=== PATIENT | male | born 1970 | race American Indian/Alaskan Native ===

== ENCOUNTER 2018-03-11 15:33 | Inpatient (IN) | payer OTHER ==
[2018-03-11] MEDS ORDERED: NACL 0.9% 1000 ML 1,000 ML IV ONE (16:11)
[2018-03-11] MEDS ORDERED: PROTONIX IV ONE (16:11)
[2018-03-11] MEDS ORDERED: ATIVAN IV ONE (16:19)
[2018-03-11] MEDS ORDERED: SandoSTATIN 500 MCG in NACL 0.9% 100 ML IV ONE (16:25)
[2018-03-11 16:45] LABS: Hematocrit 32.7 % (35.5-45.6); Mean Corpuscular HGB Conc 34 % (32-34); Mean Corpuscular Hemoglobin 32 pg (28-32); Mean Corpuscular Volume 95 fl (84-94); Red Blood Count 3.44 M/mm3 (3.65-5.03); Red Cell Distribution Width 14.7 % (13.2-15.2)
--- NOTE | 2018-03-11 16:49 | Emergency Department Report ---
HPI - General Chief Complaint: Chest Pain Time Seen by Provider: 03/11/18 16:10 - HPI HPI: Room 26 The patient is a 47-year-old male presenting with chief complaint of chest pain and hematemesis. The patient states he usually consumes a sixpack of beer daily for 3 days ago developed substernal chest pain associated with shortness of breath and diaphoresis. The patient states this prompted him to stop consuming alcohol (3 days ago). The patient states today he noticed hematemesis and melena. The patient states today he felt lightheaded and then had a syncopal episode. Patient denies abdominal pain or fever Location: Chest Duration: [See above] Quality: Pain Severity: 8-04/08 Modifying factors: [see above] Context: [see above] Mode of transportation: [not driving] ED Past Medical Hx - Past Medical History Previous Medical History?: Yes Hx Hypertension: Yes Hx Diabetes: Yes Hx Psychiatric Treatment: Yes (ETOH abuse) Hx Asthma: Yes - Surgical History Past Surgical History?: No Additional Surgical History: Herniorrhaphy - Family History Family history: no significant - Social History Smoking Status: Never Smoker Substance Use Type: Alcohol (sixpack of beer daily) - Medications Home Medications: Home Medications Medication Instructions Recorded Confirmed Last Taken Type HYDROcodone/APAP 7.5-325 [[place] 1 each PO Q6HR PRN #14 tablet 12/28/13 Unknown Rx 7.5-325 mg TAB] Ibuprofen [Motrin] 800 mg PO Q8H PRN #20 tablet 12/28/13 Unknown Rx ED Review of Systems ROS: Stated complaint: CHEST PAIN Other details as noted in HPI Constitutional: diaphoresis Eyes: denies: eye pain ENT: denies: throat pain Respiratory: shortness of breath Cardiovascular: chest pain Endocrine: no symptoms reported Gastrointestinal: hematemesis, melena. denies: abdominal pain Genitourinary: denies: dysuria Musculoskeletal: denies: back pain Neurological: denies: headache Physical Exam - Physical Exam Vital Signs: Vital Signs 03/11/18 15:50 Temperature 97.7 F Pulse Rate 111 H Respiratory 40 H Rate Blood Pressure 120/79 O2 Sat by Pulse 88 Oximetry Physical Exam: GENERAL: The patient is well-developed well-nourished male lying on stretcher appearing to be in moderate discomfort. [] HEENT: Normocephalic. Atraumatic. Extraocular motions are intact. Patient has moist mucous membranes. NECK: Supple. Trachea midline CHEST/LUNGS: Clear to auscultation. There is no respiratory distress noted. HEART/CARDIOVASCULAR: Regular. There is tachycardia. There is no gallop rub or murmur. ABDOMEN: Abdomen is soft, nontender. Patient has normal bowel sounds. There is no abdominal distention. SKIN: There is no rash. There is no edema. There is no diaphoresis. NEURO: The patient is awake, alert, and oriented. The patient is cooperative. There is mild tremulousness. The patient has normal speech MUSCULOSKELETAL: There is no evidence of acute injury. ED Course Vital Signs 03/11/18 15:50 Temperature 97.7 F Pulse Rate 111 H Respiratory 40 H Rate Blood Pressure 120/79 O2 Sat by Pulse 88 Oximetry ED Medical Decision Making - Lab Data Result diagrams: 03/14/18 04:39 03/14/18 04:39 - EKG Data -: EKG Interpreted by Me EKG shows normal: sinus rhythm Rate: tachycardia (117 bpm) - EKG Data When compared to previous EKG there are: previous EKG unavailable Critical care attestation.: If time is entered above; I have spent that time in minutes in the direct care of this critically ill patient, excluding procedure time. ED Disposition Clinical Impression: GI bleed, Chest pain, Alcohol withdrawal, Hypoxia, Renal insufficiency Disposition: OP ADMIT IP TO THIS HOSP Is pt being admited?: Yes Does the pt Need Aspirin: No Condition: Serious Time of Disposition: 17:27 (hospitalist notified (Dr Miles))
[2018-03-11 16:56] LABS: Lymphocytes % (Auto) 18.9 % (13.4-35.0); Monocytes % (Auto) 1.8 % (0.0-7.3); Platelet Count 160 K/mm3 (140-440)
[2018-03-11 16:57] LABS: Basophils % (Auto) 1.5 % (0.0-1.8); Eosinophils % (Auto) 0.5 % (0.0-4.3); Lymphocytes # (Auto) 0.5 K/mm3 (1.2-5.4)
[2018-03-11 17:01] LABS: INR 0.99 (0.87-1.13); Partial Thromboplastin Time 29.2 Sec. (24.2-36.6)
--- NOTE | 2018-03-11 17:05 | XRay Report ---
FINAL REPORT EXAM: XR CHEST 1V AP HISTORY: chest pain/MANUEL TECHNIQUE: Single, portable chest x-ray. PRIORS: None. FINDINGS: Cardiac and mediastinal silhouette within normal limits. Lungs are normally expanded, with some increased interstitial markings and peribronchial thickening centrally and most pronounced in the lower lungs. No focal consolidation or apparent pneumothorax. Bony thorax grossly unremarkable. IMPRESSION: 1. Findings which may represent nonspecific postinflammatory or bronchitic change, age-indeterminate. 2. No acute consolidation.
[2018-03-11] MEDS ORDERED: WATER FOR IRRIG STERILE IR ONE (17:17)
[2018-03-11] MEDS ORDERED: NACL 0.9% 1000 ML 1,000 ML ONE (17:19)
[2018-03-11] MEDS ORDERED: ADRENALIN ONE (17:19)
[2018-03-11] MEDS ORDERED: VITAMIN B-1 100 MG, FOLVITE 1 MG, INFUVITE 10 ML, MAGNESIUM SULFATE 2 GM in NACL 0.9% 1... IV ONE (17:22)
[2018-03-11] MEDS: PROTONIX 80 MG in NACL 0.9% 100 ML IV SCH (17:34)
--- NOTE | 2018-03-11 17:52 | Gastroenterology Consultation ---
History of Present Illness - Reason for Consult Consult date: 03/11/18 acute GI bleeding Requesting physician: KENY LANDAVERDE - History of Present Illness The patient is a 47 year old man with long history of alcohol abuse for whom consultation is requested for acute UGI bleeding. He began vomiting BRB and passing tarry black stools earlier today. He reports having a syncopal event early today as well. The patient denies prior bleeding events, known PUD or liver disease. He admits to 6-12 beers daily for many years. He denies the use of NSAIDS. Past History Past Medical History: No medical history, other Past Surgical History: No surgical history Social history: alcohol abuse Family history: no significant family history Medications and Allergies Allergies Allergy/AdvReac Type Severity Reaction Status Date / Time No Known Allergies Allergy Verified 12/28/13 03:29 Home Medications Medication Instructions Recorded Confirmed Last Taken Type HYDROcodone/APAP 7.5-325 [[place] 1 each PO Q6HR PRN #14 tablet 12/28/13 Unknown Rx 7.5-325 mg TAB] Ibuprofen [Motrin] 800 mg PO Q8H PRN #20 tablet 12/28/13 Unknown Rx Active Meds: Active Medications Thiamine HCl 100 mg/ Folic Acid 1 mg/ Multivitamins/Minerals 10 ml/ Magnesium Sulfate 2 gm/ Sodium Chloride 1,015.2 mls @ 250 mls/hr IV ONCE ONE Stop: 03/11/18 21:25 Octreotide Acetate 500 mcg/ (Sodium Chloride) 101 mls @ 5.05 mls/hr IV TITR ONE ; Protocol Stop: 03/12/18 12:24 Last Admin: 03/11/18 17:32 Dose: 25 mcg/hr, 5.05 mls/hr Pantoprazole Sodium 80 mg/ (Sodium Chloride) 100 mls @ 10 mls/hr IV DIRECT DAWNA Last Admin: 03/11/18 17:34 Dose: 8 mg/hr, 10 mls/hr Review of Systems - Review of Systems Constitutional: no weight loss, no weight gain, no fever Eyes: no change in vision Ears, Nose, Throat: no decreased hearing, no difficulty swallowing, no epistaxis , no painful swallowing Breasts: deferred Cardiovascular: chest pain, shortness of breath, syncope Respiratory: no cough, no shortness of breath, no wheezing, no home oxygen Gastrointestinal: vomiting, hematemesis, melena, no abdominal pain, no BRBPR, no early satiety, no heartburn, no indigestion, no jaundice Rectal: no pain, no bleeding Male Genitourinary: deferred Musculoskeletal: no gait dysfunction, no joint pain, no muscle pain Integumentary: no rash, no pruritis, no jaundice Neurological: no head injury, no paralysis, no memory loss Psychiatric: anxiety Endocrine: no cold intolerance, no heat intolerance Hematologic/Lymphatic: no easy bruising, no easy bleeding Allergic/Immunologic: no wheezing, no angioedema Exam - Constitutional Vital Signs: Temp Pulse Resp BP Pulse Ox 97.7 F 111 H 40 H 96/60 84 03/11/18 15:50 03/11/18 16:45 03/11/18 16:45 03/11/18 16:45 03/11/18 16:45 General appearance: no acute distress, well-nourished - EENT Eyes: PERRL ENT: hearing intact, clear oral mucosa, dentition normal - Neck Neck: supple, normal ROM, no masses or JVD - Respiratory Respiratory effort: normal Respiratory: bilateral: CTA - Breasts Breasts: deferred - Cardiovascular Rhythm: regular Heart Sounds: Present: S1 & S2. Absent: gallop, rub Extremities: pulses intact, No edema, normal color, Full ROM - Gastrointestinal General gastrointestinal: Present: soft, non-tender, non-distended, normal bowel sounds. Absent: hepatomegaly, splenomegaly, mass Rectal Exam: deferred - Genitourinary Male Genitourinary: deferred - Integumentary Integumentary: Present: clear, warm, dry - Neurologic Neurological: alert and oriented x3, strength equal bilaterally - Psychiatric Psychiatric: agitated - Labs CBC & Chem 7: 03/11/18 16:21 03/11/18 16:21 Lab Results: Laboratory Results - last 24 hr 03/11/18 03/11/18 03/11/18 16:21 16:21 16:21 WBC 2.5 L RBC 3.44 L Hgb 11.0 L Hct 32.7 L MCV 95 H MCH 32 MCHC 34 RDW 14.7 Plt Count 160 Lymph % (Auto) 18.9 [place] % (Auto) 1.8 Eos % (Auto) 0.5 Baso % (Auto) 1.5 Lymph # 0.5 L [place] # 0.0 Eos # 0.0 Baso # 0.0 Seg Neutrophils % 77.3 H Seg Neutrophils # 1.9 PT INR APTT Sodium Potassium Chloride Carbon Dioxide Anion Gap BUN Creatinine Estimated GFR BUN/Creatinine Ratio Glucose Calcium Troponin T Triglycerides Cholesterol LDL Cholesterol Direct Salicylates < 0.3 L Acetaminophen < 5.0 L Plasma/Serum Alcohol Blood Type 03/11/18 03/11/18 03/11/18 16:21 16:21 16:21 WBC RBC Hgb Hct MCV MCH MCHC RDW Plt Count Lymph % (Auto) [place] % (Auto) Eos % (Auto) Baso % (Auto) Lymph # [place] # Eos # Baso # Seg Neutrophils % Seg Neutrophils # PT 13.6 INR 0.99 APTT 29.2 Sodium 135 L Potassium 4.1 Chloride 87.0 L Carbon Dioxide 14 L Anion Gap 38 BUN 79 H Creatinine 3.7 H Estimated GFR 21 BUN/Creatinine Ratio 21 Glucose 185 H Calcium 9.0 Troponin T 0.055 H Triglycerides 100 Cholesterol 212 H LDL Cholesterol Direct 91 Salicylates Acetaminophen Plasma/Serum Alcohol < 0.01 Blood Type 03/11/18 16:34 WBC RBC Hgb Hct MCV MCH MCHC RDW Plt Count Lymph % (Auto) [place] % (Auto) Eos % (Auto) Baso % (Auto) Lymph # [place] # Eos # Baso # Seg Neutrophils % Seg Neutrophils # PT INR APTT Sodium Potassium Chloride Carbon Dioxide Anion Gap BUN Creatinine Estimated GFR BUN/Creatinine Ratio Glucose Calcium Troponin T Triglycerides Cholesterol LDL Cholesterol Direct Salicylates Acetaminophen Plasma/Serum Alcohol Blood Type A POSITIVE Assessment and Plan - Patient Problems (1) UGIB (upper gastrointestinal bleed) Current Visit: Yes Status: Acute Plan to address problem: Acute UGI bleeding is present. Rule out varices, PUD, vascular lesions. Urgent endoscopy is planned. (2) Renal failure, acute Current Visit: Yes Status: Acute Plan to address problem: Baseline unknown. May be largely from blood loss vs a component of CKD. (3) Alcohol abuse Current Visit: Yes Status: Acute Plan to address problem: Mildly tremulous at present.
[2018-03-11 18:14] LABS: Chol/HDL Ratio 1.3 %
[2018-03-11] MEDS ORDERED: AMIDATE IV ONE (18:47)
[2018-03-11] MEDS ORDERED: XYLOCAINE MPF 2% ONE (18:48)
[2018-03-11] MEDS ORDERED: NEO SYNEPHRINE/NS Syringe(OR USE) IV ONE (19:08)
--- NOTE | 2018-03-11 19:08 | Anesthesia Consultation ---
Anesthesia Consult and Med Hx Date of service: 03/11/18 - Airway Anesthetic Teeth Evaluation: Good ROM Head & Neck: Adequate Mental/Hyoid Distance: Adequate Mallampati Class: Class II Intubation Access Assessment: Probably Good - Pulmonary Exam CTA: Yes - Cardiac Exam Cardiac Exam: RRR (tachycardic) - Pre-Operative Health Status ASA Pre-Surgery Classification: ASA3, Emergency Proposed Anesthetic Plan: MAC - Pulmonary Hx Smoking: No Hx Asthma: Yes Hx Respiratory Symptoms: Yes (hypoxia; SpO2 mid-90s on venturi mask) SOB: Yes Home Oxygen Therapy: No - Cardiovascular System Hx Hypertension: Yes (intermittently hypotensive) Hx Heart Attack/AMI: No - Central Nervous System Hx Neuromuscular Disorder: No Hx Seizures: No CVA: No - Endocrine Hx Renal Disease: Yes (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 Urgent EGD scheduled.
[2018-03-11] MEDS ORDERED: VERSED IV ONE (19:12)
--- NOTE | 2018-03-11 19:32 | Operative Report ---
Operative Report Operative Report: Date of procedure: 03/11/2018 Procedure: Esophagogastroduodenoscopy Preprocedure diagnosis: Acute upper GI bleeding Post procedure diagnosis: Severe, confluent esophagitis. No varices in the esophagus. Large amount of old blood on the greater curvature of the stomach, incompletely seen. Normal antrum and duodenum. Endoscopist: Dr. Castillo Anesthesia: Monitored anesthesia care per anesthesia department Medications: Etomidate and Versed per anesthesia Estimated blood loss: 0 After careful discussion of the nature and purpose of the procedure as well as details the technique risks benefits and alternatives consent was obtained. The patient was placed in the left lateral decubitus position and medicated per anesthesia. The tip of the ROI² EQ 570 video scope was passed per orum under direct vision into the esophagus and advanced into the stomach and descending duodenum. The descending duodenum the duodenal bulb and pylorus were symmetrical and normal. The scope was withdrawn into the stomach and the stomach then gently insufflated with air. The stomach had a large amount of old blood present. The antrum was fairly well seen and was normal. The stomach was further insufflated and the scope was then retroflexed and partially withdrawn. The cardia was seen and there appeared to be no varices. The fundus and proximal body of the stomach were not well seen due to the large amount of blood which could not be completely aspirated clear. The scope was then withdrawn in the forward position. The esophagogastric junction was at 0 cm] There was severe confluent inflammation throughout the entire length of the esophageal body although no discrete varices were evident. The procedure was was well tolerated and the patient was observed in recovery. Impressions: Severe, confluent esophagitis which is probably the source of bleeding. No varices in the cardia of the stomach or esophagus. The greater curvature and fundus of the stomach were incompletely seen due to the presence of a large amount of retained blood which could not be aspirated clear. Normal duodenum and antrum. Plan: Continue high-dose acid suppression. Consider nasogastric tube suction if the patient has any vomiting. Repeat endoscopy prior to discharge due to the presence of a large amount of blood making this study incomplete. Electronically signed: Jose Castillo MD
[2018-03-11] MEDS ORDERED: ZOFRAN IV PRN (20:34)
[2018-03-11] MEDS ORDERED: MORPHINE IV PRN (20:34)
[2018-03-11] MEDS ORDERED: SODIUM CHLORIDE FLUSH SYRINGE 10 ML IV PRN (20:34)
[2018-03-11] MEDS ORDERED: PERCOCET 5/325 PO PRN (20:34)
[2018-03-11] MEDS ORDERED: TYLENOL PO PRN (20:34)
--- NOTE | 2018-03-11 20:34 | History and Physical Report ---
History of Present Illness Date of examination: 03/11/18 Past History Past Medical History: No medical history, other Past Surgical History: No surgical history Social history: alcohol abuse Family history: no significant family history Medications and Allergies Allergies Allergy/AdvReac Type Severity Reaction Status Date / Time lisinopril Allergy Anaphylaxis Verified 03/11/18 19:30 Home Medications Medication Instructions Recorded Confirmed Last Taken Type HYDROcodone/APAP 7.5-325 [[place] 1 each PO Q6HR PRN #14 tablet 12/28/13 Unknown Rx 7.5-325 mg TAB] Ibuprofen [Motrin] 800 mg PO Q8H PRN #20 tablet 12/28/13 Unknown Rx Active Meds: Active Medications Thiamine HCl 100 mg/ Folic Acid 1 mg/ Multivitamins/Minerals 10 ml/ Magnesium Sulfate 2 gm/ Sodium Chloride 1,015.2 mls @ 250 mls/hr IV ONCE ONE Stop: 03/11/18 21:25 Last Admin: 03/11/18 18:44 Dose: 250 mls/hr Octreotide Acetate 500 mcg/ (Sodium Chloride) 101 mls @ 5.05 mls/hr IV TITR ONE ; Protocol Stop: 03/12/18 12:24 Last Admin: 03/11/18 17:32 Dose: 25 mcg/hr, 5.05 mls/hr Pantoprazole Sodium 80 mg/ (Sodium Chloride) 100 mls @ 10 mls/hr IV DIRECT DAWNA Last Admin: 03/11/18 17:34 Dose: 8 mg/hr, 10 mls/hr Exam - Constitutional Vitals: Temp Pulse Resp BP Pulse Ox 97.7 F 106 H 23 82/52 95 03/11/18 15:50 03/11/18 19:15 03/11/18 19:15 03/11/18 19:15 03/11/18 19:15 Results - Labs CBC & Chem 7: 03/11/18 16:21 03/11/18 16:21 Labs: Laboratory Last Values WBC 2.5 K/mm3 (4.5-11.0) L 03/11/18 16:21 RBC 3.44 M/mm3 (3.65-5.03) L 03/11/18 16:21 Hgb 11.0 gm/dl (11.8-15.2) L 03/11/18 16:21 Hct 32.7 % (35.5-45.6) L 03/11/18 16:21 MCV 95 fl (84-94) H 03/11/18 16:21 MCH 32 pg (28-32) 03/11/18 16:21 MCHC 34 % (32-34) 03/11/18 16:21 RDW 14.7 % (13.2-15.2) 03/11/18 16:21 Plt Count 160 K/mm3 (140-440) 03/11/18 16:21 Lymph % (Auto) 18.9 % (13.4-35.0) 03/11/18 16:21 [place] % (Auto) 1.8 % (0.0-7.3) 03/11/18 16:21 Eos % (Auto) 0.5 % (0.0-4.3) 03/11/18 16:21 Baso % (Auto) 1.5 % (0.0-1.8) 03/11/18 16:21 Lymph # 0.5 K/mm3 (1.2-5.4) L 03/11/18 16:21 [place] # 0.0 K/mm3 (0.0-0.8) 03/11/18 16:21 Eos # 0.0 K/mm3 (0.0-0.4) 03/11/18 16:21 Baso # 0.0 K/mm3 (0.0-0.1) 03/11/18 16:21 Seg Neutrophils % 77.3 % (40.0-70.0) H 03/11/18 16:21 Seg Neutrophils # 1.9 K/mm3 (1.8-7.7) 03/11/18 16:21 PT 13.6 Sec. (12.2-14.9) 03/11/18 16:21 INR 0.99 (0.87-1.13) 03/11/18 16:21 APTT 29.2 Sec. (24.2-36.6) 03/11/18 16:21 Sodium 135 mmol/L (137-145) L 03/11/18 16:21 Potassium 4.1 mmol/L (3.6-5.0) 03/11/18 16:21 Chloride 87.0 mmol/L (98-107) L 03/11/18 16:21 Carbon Dioxide 14 mmol/L (22-30) L 03/11/18 16:21 Anion Gap 38 mmol/L 03/11/18 16:21 BUN 79 mg/dL (9-20) H 03/11/18 16:21 Creatinine 3.7 mg/dL (0.8-1.5) H 03/11/18 16:21 Estimated GFR 21 ml/min 03/11/18 16:21 BUN/Creatinine Ratio 21 % 03/11/18 16:21 Glucose 185 mg/dL (75-100) H 03/11/18 16:21 Calcium 9.0 mg/dL (8.4-10.2) 03/11/18 16:21 Troponin T 0.087 ng/mL (0.00-0.029) H D 03/11/18 19:38 Triglycerides 100 mg/dL (2-149) 03/11/18 16:21 Cholesterol 212 mg/dL (50-199) H 03/11/18 16:21 LDL Cholesterol Direct 91 mg/dL (50-130) 03/11/18 16:21 HDL Cholesterol 162 mg/dL (40-59) H 03/11/18 16:21 Cholesterol/HDL Ratio 1.30 % 03/11/18 16:21 Salicylates < 0.3 mg/dL (2.8-20.0) L 03/11/18 16:21 Acetaminophen < 5.0 ug/mL (10.0-30.0) L 03/11/18 16:21 Plasma/Serum Alcohol < 0.01 % (0-0.07) 03/11/18 16:21 Blood Type A POSITIVE 03/11/18 16:34 Antibody Screen Negative 03/11/18 16:34
[2018-03-11 22:10] LABS: Bilirubin,Urine NEG (Negative); Blood,Urine LG (Negative); Color,Urine Amber (Yellow); Mucus,Urine 1+ /HPF; Urobilinogen,Urine < 2.0 mg/dL (<2.0)
--- NOTE | 2018-03-11 22:12 | Nuclear Medicine Report ---
FINAL REPORT EXAM: NM LUNG SCAN PERF/VENT HISTORY: chest pain, hypoxia TECHNIQUE: Nuclear medicine lung VQ scan performed using approximately 10.3 mCi of xenon-133 gas and 4.1 mCi of technetium 99m MAA, respectively. Planar images of lungs obtained during both phases. PRIORS: Portable chest x-ray of same date. FINDINGS: Ventilation scan shows near homogeneous radionuclide accumulation in both lungs without significantly delayed washout. Perfusion scan shows mildly heterogeneous radionuclide accumulation conforming to the outlines of both lungs. No significant, segmental or mismatched defects identified. IMPRESSION: 1. Low probability for pulmonary embolism.
[2018-03-11 22:15] LABS: Amphetamine Screen,Urine PRESUMPTIVE NEGATIVE; Cannabinoid Screen,Urine PRESUMPTIVE NEGATIVE; Cocaine Screen,Urine PRESUMPTIVE NEGATIVE; Methadone Screen,Urine PRESUMPTIVE NEGATIVE; Opiate Screen,Urine PRESUMPTIVE NEGATIVE
[2018-03-11 22:31] LABS: Benzodiazepines Screen,Urine PRESUMPTIVE POSITIVE
[2018-03-11] MEDS: NACL 0.9% 1000 ML 1,000 ML IV SCH (22:39)
[2018-03-11] MEDS: SODIUM CHLORIDE FLUSH SYRINGE 10 ML IV SCH (22:39)
[2018-03-11 22:41] LABS: Hematocrit 25.5 % (35.5-45.6); Hemoglobin 8.6 gm/dl (11.8-15.2)
[2018-03-11] MEDS ORDERED: NACL 0.9% 500 ML 500 ML ONE (22:42)
[2018-03-11] MEDS ORDERED: NACL 0.9% 500 ML 500 ML IV ONE (22:52)
[2018-03-12 05:19] LABS: Basophils % (Auto) 0.3 % (0.0-1.8); Hematocrit 21.8 % (35.5-45.6); Hemoglobin 7.6 gm/dl (11.8-15.2); Lymphocytes # (Auto) 0.5 K/mm3 (1.2-5.4); Lymphocytes % (Auto) 10.5 % (13.4-35.0); Mean Corpuscular HGB Conc 35 % (32-34); Mean Corpuscular Hemoglobin 32 pg (28-32); Mean Corpuscular Volume 93 fl (84-94); Monocytes # (Auto) 0.4 K/mm3 (0.0-0.8); Monocytes % (Auto) 7.9 % (0.0-7.3); Red Blood Count 2.35 M/mm3 (3.65-5.03); Red Cell Distribution Width 14.4 % (13.2-15.2)
[2018-03-12 05:25] LABS: Calcium 7.3 mg/dL (8.4-10.2)
[2018-03-12 06:02] LABS: Albumin 3.5 g/dL (3.9-5)
[2018-03-12 06:05] LABS: Platelet Count 94 K/mm3 (140-440)
--- NOTE | 2018-03-12 07:02 | Event Note ---
Date: 03/11/18 See dictated H/p in reports ETOH dependence-DT's Upper GI bleed Hypotension
[2018-03-12 08:21] LABS: Hematocrit 22.1 % (35.5-45.6); Hemoglobin 7.6 gm/dl (11.8-15.2)
[2018-03-12] MEDS: ROCEPHIN/NS 1 GM/50 ML 1 GM/50 ML BAG IV SCH (08:50)
[2018-03-12] MEDS: DUONEB *Not for PRN Use IH SCH ×2 (09:11→13:13)
--- NOTE | 2018-03-12 09:29 | History and Physical Report ---
CHIEF COMPLAINT: 1. Hematemesis. 2. Chest pain. 3. Withdrawal symptoms. HISTORY OF PRESENT ILLNESS: A 47-year-old male with history of ETOH dependence. Stopped alcohol for the last 3 days. The patient also has developed vomiting blood in the last 24 hours. The patient had chest pain 3 days ago, so since then he stopped alcohol. The patient today felt lightheaded and vomited bright red blood. Also no abdominal pain. Chest pain present, about 6 on a scale of 1-10, dull in character. Some shortness of breath present. Also hypoxic in the Emergency Room. PAST MEDICAL HISTORY: Significant for hypertension, diabetes, ETOH abuse, asthma. PAST SURGICAL HISTORY: Herniorrhaphy. FAMILY HISTORY: Hypertension. SOCIAL HISTORY: Does not smoke. Alcohol on a regular basis, 6-pack of beer daily. CURRENT MEDICATIONS: Ibuprofen and hydrocodone. REVIEW OF SYSTEMS: Significant for hematemesis, chest pain, shortness of breath and anxiety and nervousness. Otherwise, review of systems negative. PHYSICAL EXAMINATION: GENERAL: Middle-aged male, cooperative during examination. VITAL SIGNS: Blood pressure 120/79, temperature 97.7, pulse is 111, respirations are 40. HEENT: Unremarkable. Pupils equal and reactive. NECK: Supple, no lymphadenopathy, no thyromegaly. LUNGS: Scattered rhonchi bilaterally. CARDIOVASCULAR: S1, S2 heard. No gallop, no murmur, no rub. Apical impulse in left fifth intercostal space and midclavicular line. ABDOMEN: Slightly tender in the epigastric region. Bowel sounds are normal. RECTAL: Positive for occult blood. Tarry stools on the finger. EXTREMITIES: Good pedal pulses. No pedal edema. CENTRAL NERVOUS SYSTEM: Alert and oriented x 4, nonfocal exam. LABORATORY DATA: Significant for white count of 2500, H and H of 11.0 and 32.7, platelet count of 160,000. Sodium is 135, potassium is 4.1, chloride is 87, bicarbonate is 14, BUN and creatinine is 17 and 3.7, glucose is 185. Troponin is 0.087. Triglycerides 100, cholesterol is 212. LDL is 91, HDL is 162. Urine white cells of 25. EKG shows sinus tachycardia, heart rate of 117 per minute, no acute ST-T wave changes. Pulmonary perfusion scan was negative for embolism. Chest x-ray shows nonspecific postinflammatory bronchitis changes. No acute consolidation. ER COURSE: The patient had an upper GI by Dr. Castillo. The patient had emergent EGD in the Emergency Room by Dr. Castillo at bedside. EGD showed confluent esophagitis, old blood in the greater curvature of the stomach, normal antrum and duodenum. No peptic ulcer present. ASSESSMENT AND PLAN: 1. Upper gastrointestinal bleed. IV Protonix drip initiated. No active bleeding. Continue Protonix drip for 24-48 hours and switch to p.o. Protonix. 2. ETOH dependence. The patient initiated on CIWA protocol. 3. Delirium tremens. CIWA protocol initiated. 4. Hyponatremia. IV normal saline for the time being. 5. Acute on chronic kidney disease. IV fluids for now. Dr. Silva consulted. 6. Chest pain, elevated troponin at this point. Lexiscan in 24-48 hours 7. Urinary tract infection. IV Rocephin initiated. 8. Deep venous thrombosis prophylaxis, only sequential compression devices. No Lovenox or heparin. JOB# [id number] VSM/NTS
--- NOTE | 2018-03-12 09:47 | Gastroenterology Progress Note ---
<WOODROW SU - Last Filed: 03/12/18 09:51> Assessment and Plan 1.UGIB -HGB 7.6-trending down -continue to monitor H/H and transfuse as needed -hold blood thinning medications -BMs x 5 overnight with black stool but no further episodes of hematemesis -currently HD stable -s/p EGD yesterday that revealed severe, confluent esophagitis (no varices), large amount of old blood on the greater curvature of the stomach (incompletely seen), and normal antrum/duodenum -recommend repeat endoscopy prior to discharge -okay to d/c octreotide drip -continue PPI drip -okay to start on clear liquids -continue supportive care -will follow 2.ETOH abuse -alcohol cessation discussed and encouraged with patient -monitor for s/s of withdrawal Subjective Date of service: 03/12/18 Principal diagnosis: GI bleed Interval history: Patient w/o acute distress. Reports BMs x 5 overnight with black tarry stool but no hematemesis. Has some mild continued CP this am (stress test tomorrow). Denies Abd pain or N/V. Objective - Constitutional Vitals: Temp Pulse Resp BP Pulse Ox 98.5 F 83 30 H 106/67 100 03/11/18 22:29 03/12/18 05:30 03/12/18 06:33 03/12/18 05:30 03/12/18 06:33 General appearance: no acute distress - EENT Eyes: PERRL, EOM intact ENT: hearing intact - Respiratory Respiratory: bilateral: CTA - Cardiovascular Rhythm: regular Heart Sounds: Present: S1 & S2 - Gastrointestinal General gastrointestinal: Present: soft, non-tender, non-distended - Neurologic Neurological: alert and oriented x3 - Labs CBC & Chem 7: 03/12/18 07:52 03/12/18 04:38 Labs: Laboratory Results - last 24 hr 03/11/18 03/11/18 03/11/18 16:21 16:21 16:21 WBC 2.5 L RBC 3.44 L Hgb 11.0 L Hct 32.7 L MCV 95 H MCH 32 MCHC 34 RDW 14.7 Plt Count 160 Lymph % (Auto) 18.9 [place] % (Auto) 1.8 Eos % (Auto) 0.5 Baso % (Auto) 1.5 Lymph # 0.5 L [place] # 0.0 Eos # 0.0 Baso # 0.0 Seg Neutrophils % 77.3 H Seg Neutrophils # 1.9 PT INR APTT Sodium Potassium Chloride Carbon Dioxide Anion Gap BUN Creatinine Estimated GFR BUN/Creatinine Ratio Glucose Calcium Total Bilirubin AST ALT Alkaline Phosphatase Troponin T Total Protein Albumin Albumin/Globulin Ratio Triglycerides Cholesterol LDL Cholesterol Direct HDL Cholesterol Cholesterol/HDL Ratio Urine Color Urine Turbidity Urine pH Ur Specific Enterprise Urine Protein Urine Glucose (UA) Urine Ketones Urine Blood Urine Nitrite Urine Bilirubin Urine Urobilinogen Ur Leukocyte Esterase Urine WBC (Auto) Urine RBC (Auto) U Epithel Cells (Auto) Urine Mucus Salicylates < 0.3 L Urine Opiates Screen Urine Methadone Screen Acetaminophen < 5.0 L Ur Barbiturates Screen Ur Phencyclidine Scrn Ur Amphetamines Screen U Benzodiazepines Scrn Urine Cocaine Screen U Marijuana (THC) Screen Drugs of Abuse Note Plasma/Serum Alcohol Blood Type Antibody Screen 03/11/18 03/11/18 03/11/18 16:21 16:21 16:21 WBC RBC Hgb Hct MCV MCH MCHC RDW Plt Count Lymph % (Auto) [place] % (Auto) Eos % (Auto) Baso % (Auto) Lymph # [place] # Eos # Baso # Seg Neutrophils % Seg Neutrophils # PT 13.6 INR 0.99 APTT 29.2 Sodium 135 L Potassium 4.1 Chloride 87.0 L Carbon Dioxide 14 L Anion Gap 38 BUN 79 H Creatinine 3.7 H Estimated GFR 21 BUN/Creatinine Ratio 21 Glucose 185 H Calcium 9.0 Total Bilirubin AST ALT Alkaline Phosphatase Troponin T 0.055 H Total Protein Albumin Albumin/Globulin Ratio Triglycerides 100 Cholesterol 212 H LDL Cholesterol Direct 91 HDL Cholesterol 162 H Cholesterol/HDL Ratio 1.30 Urine Color Urine Turbidity Urine pH Ur Specific [place] Urine Protein Urine Glucose (UA) Urine Ketones Urine Blood Urine Nitrite Urine Bilirubin Urine Urobilinogen Ur Leukocyte Esterase Urine WBC (Auto) Urine RBC (Auto) U Epithel Cells (Auto) Urine Mucus Salicylates Urine Opiates Screen Urine Methadone Screen Acetaminophen Ur Barbiturates Screen Ur Phencyclidine Scrn Ur Amphetamines Screen U Benzodiazepines Scrn Urine Cocaine Screen U Marijuana (THC) Screen Drugs of Abuse Note Plasma/Serum Alcohol < 0.01 Blood Type Antibody Screen 03/11/18 03/11/18 03/11/18 16:34 19:38 21:35 WBC RBC Hgb Hct MCV MCH MCHC RDW Plt Count Lymph % (Auto) [place] % (Auto) Eos % (Auto) Baso % (Auto) Lymph # [place] # Eos # Baso # Seg Neutrophils % Seg Neutrophils # PT INR APTT Sodium Potassium Chloride Carbon Dioxide Anion Gap BUN Creatinine Estimated GFR BUN/Creatinine Ratio Glucose Calcium Total Bilirubin AST ALT Alkaline Phosphatase Troponin T 0.087 H D Total Protein Albumin Albumin/Globulin Ratio Triglycerides Cholesterol LDL Cholesterol Direct HDL Cholesterol Cholesterol/HDL Ratio Urine Color Luci Urine Turbidity Clear Urine pH 5.0 Ur Specific [place] 1.016 Urine Protein 100 mg/dl Urine Glucose (UA) 50 Urine Ketones Neg Urine Blood Lg Urine Nitrite Neg Urine Bilirubin Neg Urine Urobilinogen < 2.0 Ur Leukocyte Esterase Tr Urine WBC (Auto) 25.0 H Urine RBC (Auto) 5.0 U Epithel Cells (Auto) 3.0 Urine Mucus 1+ Salicylates Urine Opiates Screen Urine Methadone Screen Acetaminophen Ur Barbiturates Screen Ur Phencyclidine Scrn Ur Amphetamines Screen U Benzodiazepines Scrn Urine Cocaine Screen U Marijuana (THC) Screen Drugs of Abuse Note Plasma/Serum Alcohol Blood Type A POSITIVE Antibody Screen Negative 03/11/18 03/11/18 03/11/18 21:35 22:16 22:16 WBC RBC Hgb 8.6 L Hct 25.5 L D MCV MCH MCHC RDW Plt Count Lymph % (Auto) [place] % (Auto) Eos % (Auto) Baso % (Auto) Lymph # [place] # Eos # Baso # Seg Neutrophils % Seg Neutrophils # PT INR APTT Sodium Potassium Chloride Carbon Dioxide Anion Gap BUN Creatinine Estimated GFR BUN/Creatinine Ratio Glucose Calcium Total Bilirubin AST ALT Alkaline Phosphatase Troponin T 0.117 H* D Total Protein Albumin Albumin/Globulin Ratio Triglycerides Cholesterol LDL Cholesterol Direct HDL Cholesterol Cholesterol/HDL Ratio Urine Color Urine Turbidity Urine pH Ur Specific Enterprise Urine Protein Urine Glucose (UA) Urine Ketones Urine Blood Urine Nitrite Urine Bilirubin Urine Urobilinogen Ur Leukocyte Esterase Urine WBC (Auto) Urine RBC (Auto) U Epithel Cells (Auto) Urine Mucus Salicylates Urine Opiates Screen Presumptive negative Urine Methadone Screen Presumptive negative Acetaminophen Ur Barbiturates Screen Presumptive negative Ur Phencyclidine Scrn Presumptive negative Ur Amphetamines Screen Presumptive negative U Benzodiazepines Scrn Presumptive positive Urine Cocaine Screen Presumptive negative U Marijuana (THC) Screen Presumptive negative Drugs of Abuse Note Disclamer Plasma/Serum Alcohol Blood Type Antibody Screen 0803/12/18 03/12/18 04:38 04:38 07:52 WBC 5.1 RBC 2.35 L Hgb 7.6 L 7.6 L Hct 21.8 L 22.1 L MCV 93 MCH 32 MCHC 35 H RDW 14.4 Plt Count 94 L Lymph % (Auto) 10.5 L [place] % (Auto) 7.9 H Eos % (Auto) 0.0 Baso % (Auto) 0.3 Lymph # 0.5 L [place] # 0.4 Eos # 0.0 Baso # 0.0 Seg Neutrophils % 81.3 H Seg Neutrophils # 4.1 PT INR APTT Sodium 134 L Potassium 4.5 Chloride 98.7 Carbon Dioxide 18 L Anion Gap 22 BUN 93 H Creatinine 3.5 H Estimated GFR 23 BUN/Creatinine Ratio 27 Glucose 110 H Calcium 7.3 L D Total Bilirubin 2.10 H AST 582 H ALT 177 H Alkaline Phosphatase 39 Troponin T Total Protein 5.7 L Albumin 3.5 L Albumin/Globulin Ratio 1.6 Triglycerides Cholesterol LDL Cholesterol Direct HDL Cholesterol Cholesterol/HDL Ratio Urine Color Urine Turbidity Urine pH Ur Specific Enterprise Urine Protein Urine Glucose (UA) Urine Ketones Urine Blood Urine Nitrite Urine Bilirubin Urine Urobilinogen Ur Leukocyte Esterase Urine WBC (Auto) Urine RBC (Auto) U Epithel Cells (Auto) Urine Mucus Salicylates Urine Opiates Screen Urine Methadone Screen Acetaminophen Ur Barbiturates Screen Ur Phencyclidine Scrn Ur Amphetamines Screen U Benzodiazepines Scrn Urine Cocaine Screen U Marijuana (THC) Screen Drugs of Abuse Note Plasma/Serum Alcohol Blood Type Antibody Screen <LUX MARTELL - Last Filed: 03/12/18 10:49> Assessment and Plan - Patient Problems (1) UGIB (upper gastrointestinal bleed) Current Visit: Yes Status: Acute Plan to address problem: The patient was personally seen and examined. Bleeding may be slowing, but he will need transfusion and repeat endoscopy in a few days due to an incomplete study due to a large amount of blood present. No varices and will stop octreotide and continue PPI infusion. (2) Renal failure, acute Current Visit: Yes Status: Acute (3) Alcohol abuse Current Visit: Yes Status: Acute Objective - Constitutional Vitals: Temp Pulse Resp BP Pulse Ox 98.5 F 82 26 H 105/72 98 03/11/18 22:29 03/12/18 10:00 03/12/18 10:00 03/12/18 10:00 03/12/18 09:30 - Labs CBC & Chem 7: 03/12/18 07:52 03/12/18 04:38 Labs: Laboratory Results - last 24 hr 03/11/18 03/11/18 03/11/18 16:21 16:21 16:21 WBC 2.5 L RBC 3.44 L Hgb 11.0 L Hct 32.7 L MCV 95 H MCH 32 MCHC 34 RDW 14.7 Plt Count 160 Lymph % (Auto) 18.9 [place] % (Auto) 1.8 Eos % (Auto) 0.5 Baso % (Auto) 1.5 Lymph # 0.5 L [place] # 0.0 Eos # 0.0 Baso # 0.0 Seg Neutrophils % 77.3 H Seg Neutrophils # 1.9 PT INR APTT Sodium Potassium Chloride Carbon Dioxide Anion Gap BUN Creatinine Estimated GFR BUN/Creatinine Ratio Glucose Calcium Total Bilirubin AST ALT Alkaline Phosphatase Troponin T Total Protein Albumin Albumin/Globulin Ratio Triglycerides Cholesterol LDL Cholesterol Direct HDL Cholesterol Cholesterol/HDL Ratio Urine Color Urine Turbidity Urine pH Ur Specific Enterprise Urine Protein Urine Glucose (UA) Urine Ketones Urine Blood Urine Nitrite Urine Bilirubin Urine Urobilinogen Ur Leukocyte Esterase Urine WBC (Auto) Urine RBC (Auto) U Epithel Cells (Auto) Urine Mucus Salicylates < 0.3 L Urine Opiates Screen Urine Methadone Screen Acetaminophen < 5.0 L Ur Barbiturates Screen Ur Phencyclidine Scrn Ur Amphetamines Screen U Benzodiazepines Scrn Urine Cocaine Screen U Marijuana (THC) Screen Drugs of Abuse Note Plasma/Serum Alcohol Blood Type Antibody Screen 03/11/18 03/11/18 03/11/18 16:21 16:21 16:21 WBC RBC Hgb Hct MCV MCH MCHC RDW Plt Count Lymph % (Auto) [place] % (Auto) Eos % (Auto) Baso % (Auto) Lymph # [place] # Eos # Baso # Seg Neutrophils % Seg Neutrophils # PT 13.6 INR 0.99 APTT 29.2 Sodium 135 L Potassium 4.1 Chloride 87.0 L Carbon Dioxide 14 L Anion Gap 38 BUN 79 H Creatinine 3.7 H Estimated GFR 21 BUN/Creatinine Ratio 21 Glucose 185 H Calcium 9.0 Total Bilirubin AST ALT Alkaline Phosphatase Troponin T 0.055 H Total Protein Albumin Albumin/Globulin Ratio Triglycerides 100 Cholesterol 212 H LDL Cholesterol Direct 91 HDL Cholesterol 162 H Cholesterol/HDL Ratio 1.30 Urine Color Urine Turbidity Urine pH Ur Specific [place] Urine Protein Urine Glucose (UA) Urine Ketones Urine Blood Urine Nitrite Urine Bilirubin Urine Urobilinogen Ur Leukocyte Esterase Urine WBC (Auto) Urine RBC (Auto) U Epithel Cells (Auto) Urine Mucus Salicylates Urine Opiates Screen Urine Methadone Screen Acetaminophen Ur Barbiturates Screen Ur Phencyclidine Scrn Ur Amphetamines Screen U Benzodiazepines Scrn Urine Cocaine Screen U Marijuana (THC) Screen Drugs of Abuse Note Plasma/Serum Alcohol < 0.01 Blood Type Antibody Screen 03/11/18 03/11/18 03/11/18 16:34 19:38 21:35 WBC RBC Hgb Hct MCV MCH MCHC RDW Plt Count Lymph % (Auto) [place] % (Auto) Eos % (Auto) Baso % (Auto) Lymph # [place] # Eos # Baso # Seg Neutrophils % Seg Neutrophils # PT INR APTT Sodium Potassium Chloride Carbon Dioxide Anion Gap BUN Creatinine Estimated GFR BUN/Creatinine Ratio Glucose Calcium Total Bilirubin AST ALT Alkaline Phosphatase Troponin T 0.087 H D Total Protein Albumin Albumin/Globulin Ratio Triglycerides Cholesterol LDL Cholesterol Direct HDL Cholesterol Cholesterol/HDL Ratio Urine Color Luci Urine Turbidity Clear Urine pH 5.0 Ur Specific [place] 1.016 Urine Protein 100 mg/dl Urine Glucose (UA) 50 Urine Ketones Neg Urine Blood Lg Urine Nitrite Neg Urine Bilirubin Neg Urine Urobilinogen < 2.0 Ur Leukocyte Esterase Tr Urine WBC (Auto) 25.0 H Urine RBC (Auto) 5.0 U Epithel Cells (Auto) 3.0 Urine Mucus 1+ Salicylates Urine Opiates Screen Urine Methadone Screen Acetaminophen Ur Barbiturates Screen Ur Phencyclidine Scrn Ur Amphetamines Screen U Benzodiazepines Scrn Urine Cocaine Screen U Marijuana (THC) Screen Drugs of Abuse Note Plasma/Serum Alcohol Blood Type A POSITIVE Antibody Screen Negative 03/11/18 03/11/18 03/11/18 21:35 22:16 22:16 WBC RBC Hgb 8.6 L Hct 25.5 L D MCV MCH MCHC RDW Plt Count Lymph % (Auto) [place] % (Auto) Eos % (Auto) Baso % (Auto) Lymph # [place] # Eos # Baso # Seg Neutrophils % Seg Neutrophils # PT INR APTT Sodium Potassium Chloride Carbon Dioxide Anion Gap BUN Creatinine Estimated GFR BUN/Creatinine Ratio Glucose Calcium Total Bilirubin AST ALT Alkaline Phosphatase Troponin T 0.117 H* D Total Protein Albumin Albumin/Globulin Ratio Triglycerides Cholesterol LDL Cholesterol Direct HDL Cholesterol Cholesterol/HDL Ratio Urine Color Urine Turbidity Urine pH Ur Specific Enterprise Urine Protein Urine Glucose (UA) Urine Ketones Urine Blood Urine Nitrite Urine Bilirubin Urine Urobilinogen Ur Leukocyte Esterase Urine WBC (Auto) Urine RBC (Auto) U Epithel Cells (Auto) Urine Mucus Salicylates Urine Opiates Screen Presumptive negative Urine Methadone Screen Presumptive negative Acetaminophen Ur Barbiturates Screen Presumptive negative Ur Phencyclidine Scrn Presumptive negative Ur Amphetamines Screen Presumptive negative U Benzodiazepines Scrn Presumptive positive Urine Cocaine Screen Presumptive negative U Marijuana (THC) Screen Presumptive negative Drugs of Abuse Note Disclamer Plasma/Serum Alcohol Blood Type Antibody Screen 03/12/18 03/12/18 03/12/18 04:38 04:38 07:52 WBC 5.1 RBC 2.35 L Hgb 7.6 L 7.6 L Hct 21.8 L 22.1 L MCV 93 MCH 32 MCHC 35 H RDW 14.4 Plt Count 94 L Lymph % (Auto) 10.5 L [place] % (Auto) 7.9 H Eos % (Auto) 0.0 Baso % (Auto) 0.3 Lymph # 0.5 L [place] # 0.4 Eos # 0.0 Baso # 0.0 Seg Neutrophils % 81.3 H Seg Neutrophils # 4.1 PT INR APTT Sodium 134 L Potassium 4.5 Chloride 98.7 Carbon Dioxide 18 L Anion Gap 22 BUN 93 H Creatinine 3.5 H Estimated GFR 23 BUN/Creatinine Ratio 27 Glucose 110 H Calcium 7.3 L D Total Bilirubin 2.10 H AST 582 H ALT 177 H Alkaline Phosphatase 39 Troponin T Total Protein 5.7 L Albumin 3.5 L Albumin/Globulin Ratio 1.6 Triglycerides Cholesterol LDL Cholesterol Direct HDL Cholesterol Cholesterol/HDL Ratio Urine Color Urine Turbidity Urine pH Ur Specific Enterprise Urine Protein Urine Glucose (UA) Urine Ketones Urine Blood Urine Nitrite Urine Bilirubin Urine Urobilinogen Ur Leukocyte Esterase Urine WBC (Auto) Urine RBC (Auto) U Epithel Cells (Auto) Urine Mucus Salicylates Urine Opiates Screen Urine Methadone Screen Acetaminophen Ur Barbiturates Screen Ur Phencyclidine Scrn Ur Amphetamines Screen U Benzodiazepines Scrn Urine Cocaine Screen U Marijuana (THC) Screen Drugs of Abuse Note Plasma/Serum Alcohol Blood Type Antibody Screen
[2018-03-12] MEDS: SODIUM CHLORIDE FLUSH SYRINGE 10 ML IV SCH ×2 (12:10→21:43)
[2018-03-12] MEDS: NACL 0.9% 1000 ML 1,000 ML IV SCH (12:31)
[2018-03-12 13:07] LABS: Hemoglobin 7.9 gm/dl (11.8-15.2)
--- NOTE | 2018-03-12 13:34 | Consultation ---
History of Present Illness Consult date: 03/12/18 Requesting physician: BRANDYN LEUNG Consult reason: abnormal cardiac enzymes, chest pain History of present illness: The patient is a 47 year old male with a history of hypertension, diabetes, ETOH abuse who presented with complaints of intermittent, sharp, precordial chest pain that started about 4 days ago. Associated with shortness of breath and diaphoresis. He usually drinks about 6 beers every day but these symptoms prompted him to stop drinking 4 days ago. Yesterday, he developed hematemesis and melena. Emergent EGD yesterday showed severe, confluent esophagitis (no varices), large amount of old blood on the greater curvature of the stomach ( incompletely seen), and normal antrum/duodenum. Troponin level is mildly elevated, 0.055, 0.087, 0.117. BUN 93 with a creatinine of 3.5. V/Q scan low probability for PE. Past History Past Medical History: diabetes (6 beers/day), hypertension Past Surgical History: hernia repair Social history: alcohol abuse, full code. denies: smoking, IV drug use Family history: no significant family history Medications and Allergies Allergies Allergy/AdvReac Type Severity Reaction Status Date / Time lisinopril Allergy Anaphylaxis Verified 03/11/18 19:30 Home Medications Medication Instructions Recorded Confirmed Last Taken Type HYDROcodone/APAP 7.5-325 [[place] 1 each PO Q6HR PRN #14 tablet 12/28/13 Unknown Rx 7.5-325 mg TAB] Ibuprofen [Motrin] 800 mg PO Q8H PRN #20 tablet 12/28/13 Unknown Rx Active Meds: Active Medications Acetaminophen (Tylenol) 650 mg PO Q4H PRN PRN Reason: Pain MILD(1-3)/Fever >100.5/LIGHT Pantoprazole Sodium 80 mg/ (Sodium Chloride) 100 mls @ 10 mls/hr IV DIRECT DAWNA Last Admin: 03/11/18 17:34 Dose: 8 mg/hr, 10 mls/hr Sodium Chloride (Nacl 0.9% 1000 Ml) 1,000 mls @ 75 mls/hr IV DIRECT DAWNA Last Admin: 03/12/18 12:31 Dose: 75 mls/hr Ceftriaxone Sodium (Rocephin/Ns 1 Gm/50 Ml) 1 gm in 50 mls @ 100 mls/hr IV Q24HR DAWNA; Protocol Last Admin: 03/12/18 08:50 Dose: 100 mls/hr Morphine Sulfate (Morphine) 2 mg IV Q4H PRN PRN Reason: Pain, Moderate (4-6) Ondansetron HCl (Zofran) 4 mg IV Q8H PRN PRN Reason: Nausea And Vomiting Oxycodone/Acetaminophen (Percocet 5/325) 1 tab PO Q6H PRN PRN Reason: Pain, Moderate (4-6) Sodium Chloride (Sodium Chloride Flush Syringe 10 Ml) 10 ml IV BID [facility] Last Admin: 03/12/18 12:10 Dose: Not Given Sodium Chloride (Sodium Chloride Flush Syringe 10 Ml) 10 ml IV PRN PRN PRN Reason: LINE FLUSH Review of Systems Constitutional: no fever, no chills Ears, nose, mouth and throat: no nasal congestion, no nasal discharge, no sinus pressure Cardiovascular: chest pain, shortness of breath Respiratory: shortness of breath, no cough, no congestion, no wheezing Gastrointestinal: hematemesis, melena Genitourinary Male: no dysuria, no hematuria Musculoskeletal: no neck stiffness, no neck pain, no myalgias Integumentary: no rash, no pruritis Neurological: no weakness, no parathesias, no numbness, no tingling Hematologic/Lymphatic: no easy bruising, no easy bleeding Allergic/Immunologic: no urticaria, no wheezing Physical Examination Last Vital Signs Temp 98.7 F 03/12/18 11:00 Pulse 82 03/12/18 10:00 Resp 26 H 03/12/18 10:00 BP 105/72 03/12/18 10:00 Pulse Ox 98 03/12/18 12:52 General appearance: no acute distress HEENT: Positive: Normocephaly, Mucus Membranes Moist Neck: Positive: neck supple, trachea midline Cardiac: Positive: Reg Rate and Rhythm, S1/S2 Lungs: Positive: clear to auscultation Abdomen: Positive: Soft, Active Bowel Sounds Skin: Positive: Clear. Negative: Rash Extremities: Present: normal. Absent: edema Results 03/12/18 12:34 03/12/18 04:38 Cardiac Enzymes 03/12/18 Range/Units 04:38 AST 582 H (5-40) units/L Coagulation 03/11/18 Range/Units 16:21 PT 13.6 (12.2-14.9) Sec. INR 0.99 (0.87-1.13) APTT 29.2 (24.2-36.6) Sec. Lipids 03/11/18 Range/Units 16:21 Triglycerides 100 (2-149) mg/dL Cholesterol 212 H (50-199) mg/dL HDL Cholesterol 162 H (40-59) mg/dL Cholesterol/HDL Ratio 1.30 % CBC 03/11/18 03/11/18 03/12/18 Range/Units 16:21 22:16 04:38 WBC 2.5 L 5.1 (4.5-11.0) K/mm3 RBC 3.44 L 2.35 L (3.65-5.03) M/mm3 Hgb 11.0 L 8.6 L 7.6 L (11.8-15.2) gm/dl Hct 32.7 L 25.5 L D 21.8 L (35.5-45.6) % Plt Count 160 94 L (140-440) K/mm3 Lymph # 0.5 L 0.5 L (1.2-5.4) K/mm3 [place] # 0.0 0.4 (0.0-0.8) K/mm3 Eos # 0.0 0.0 (0.0-0.4) K/mm3 Baso # 0.0 0.0 (0.0-0.1) K/mm3 03/12/18 03/12/18 Range/Units 07:52 12:34 WBC (4.5-11.0) K/mm3 RBC (3.65-5.03) M/mm3 Hgb 7.6 L 7.9 L (11.8-15.2) gm/dl Hct 22.1 L 23.0 L (35.5-45.6) % Plt Count (140-440) K/mm3 Lymph # (1.2-5.4) K/mm3 [place] # (0.0-0.8) K/mm3 Eos # (0.0-0.4) K/mm3 Baso # (0.0-0.1) K/mm3 Comprehensive Metabolic Panel 03/11/18 03/12/18 Range/Units 16:21 04:38 Sodium 135 L 134 L (137-145) mmol/L Potassium 4.1 4.5 (3.6-5.0) mmol/L Chloride 87.0 L 98.7 (98-107) mmol/L Carbon Dioxide 14 L 18 L (22-30) mmol/L BUN 79 H 93 H (9-20) mg/dL Creatinine 3.7 H 3.5 H (0.8-1.5) mg/dL Glucose 185 H 110 H (75-100) mg/dL Calcium 9.0 7.3 L D (8.4-10.2) mg/dL AST 582 H (5-40) units/L ALT 177 H (7-56) units/L Alkaline Phosphatase 39 (35-129) units/L Total Protein 5.7 L (6.3-8.2) g/dL Albumin 3.5 L (3.9-5) g/dL - Imaging and Cardiology Echo: pending EKG: image reviewed EKG interpretations - Telemetry EKG Rhythm: Sinus Tachycardia - EKG Sinus rhythms and dysrhythmias: sinus tachycardia Assessment and Plan Assessment: Atypical chest pain NSTEMI type II Upper GI bleed Acute on chronic renal failure ETOH abuse/withdrawal H/o HTN-->BP currently borderline low Diabetes Plan: Obtain echocardiogram. Will plan for lexiscan stress test when clinically stable , tentatively on . 03/14/18. The patient has been seen in conjunction with Dr. Contreras who agrees with the assessment and plan of care.
--- NOTE | 2018-03-12 13:49 | Progress Note ---
Assessment and Plan Assessment and plan: --Upper GI bleeding: s/p endoscopy: Severe, confluent esophagitis. No varices in the esophagus. Large amount of old blood on the greater curvature of the stomach, incompletely seen. Normal antrum and duodenum. Repeat endoscopy tomorrow IV protonix --Chest pain/NSTEMI type 2 Management per cardiology,possible stress test tomorrow Cont current cardiac meds --Hypertension: continue current meds,closely monitor --Acute on chronic Kidney disease: due to vasomotor nephropathy avoid nephrotoxins,nephrology consult. --Alcohol use: counselling done --DVT prophylaxis: SCD History Interval history: Patient seen and examined medical benefits reviewed Admitted upper GI bleeding, had endoscopy No new episodes of bleeding. Patient feels better Vital signs noted Hospitalist Physical - Constitutional Vitals: Temp Pulse Resp BP Pulse Ox 98.7 F 82 26 H 105/72 98 03/12/18 11:00 03/12/18 10:00 03/12/18 10:00 03/12/18 10:00 03/12/18 12:52 General appearance: Present: no acute distress, well-nourished - EENT Eyes: Present: PERRL, EOM intact - Neck Neck: Present: supple, normal ROM - Respiratory Respiratory effort: normal Respiratory: bilateral: diminished, negative: rales, rhonchi, wheezing - Cardiovascular Rhythm: regular Heart Sounds: Present: S1 & S2 - Extremities Extremities: no ischemia, No edema - Abdominal General gastrointestinal: soft, non-tender, non-distended, normal bowel sounds - Integumentary Integumentary: Present: clear, warm - Psychiatric Psychiatric: appropriate mood/affect, cooperative - Neurologic Neurologic: CNII-XII intact, moves all extremities Results - Labs CBC & Chem 7: 03/13/18 05:39 03/12/18 04:38 Labs: Laboratory Last Values WBC 5.1 K/mm3 (4.5-11.0) 03/12/18 04:38 RBC 2.35 M/mm3 (3.65-5.03) L 03/12/18 04:38 Hgb 7.9 gm/dl (11.8-15.2) L 03/12/18 12:34 Hct 23.0 % (35.5-45.6) L 03/12/18 12:34 MCV 93 fl (84-94) 03/12/18 04:38 MCH 32 pg (28-32) 03/12/18 04:38 MCHC 35 % (32-34) H 03/12/18 04:38 RDW 14.4 % (13.2-15.2) 03/12/18 04:38 Plt Count 94 K/mm3 (140-440) L 03/12/18 04:38 Lymph % (Auto) 10.5 % (13.4-35.0) L 03/12/18 04:38 [place] % (Auto) 7.9 % (0.0-7.3) H 03/12/18 04:38 Eos % (Auto) 0.0 % (0.0-4.3) 03/12/18 04:38 Baso % (Auto) 0.3 % (0.0-1.8) 03/12/18 04:38 Lymph # 0.5 K/mm3 (1.2-5.4) L 03/12/18 04:38 [place] # 0.4 K/mm3 (0.0-0.8) 03/12/18 04:38 Eos # 0.0 K/mm3 (0.0-0.4) 03/12/18 04:38 Baso # 0.0 K/mm3 (0.0-0.1) 03/12/18 04:38 Seg Neutrophils % 81.3 % (40.0-70.0) H 03/12/18 04:38 Seg Neutrophils # 4.1 K/mm3 (1.8-7.7) 03/12/18 04:38 PT 13.6 Sec. (12.2-14.9) 03/11/18 16:21 INR 0.99 (0.87-1.13) 03/11/18 16:21 APTT 29.2 Sec. (24.2-36.6) 03/11/18 16:21 Sodium 134 mmol/L (137-145) L 03/12/18 04:38 Potassium 4.5 mmol/L (3.6-5.0) 03/12/18 04:38 Chloride 98.7 mmol/L (98-107) 03/12/18 04:38 Carbon Dioxide 18 mmol/L (22-30) L 03/12/18 04:38 Anion Gap 22 mmol/L 03/12/18 04:38 BUN 93 mg/dL (9-20) H 03/12/18 04:38 Creatinine 3.5 mg/dL (0.8-1.5) H 03/12/18 04:38 Estimated GFR 23 ml/min 03/12/18 04:38 BUN/Creatinine Ratio 27 % 03/12/18 04:38 Glucose 110 mg/dL (75-100) H 03/12/18 04:38 POC Glucose 119 (70-105) H 03/12/18 11:30 Calcium 7.3 mg/dL (8.4-10.2) L D 03/12/18 04:38 Total Bilirubin 2.10 mg/dL (0.1-1.2) H 03/12/18 04:38 AST 582 units/L (5-40) H 03/12/18 04:38 ALT 177 units/L (7-56) H 03/12/18 04:38 Alkaline Phosphatase 39 units/L (35-129) 03/12/18 04:38 Troponin T 0.117 ng/mL (0.00-0.029) H* D 03/11/18 22:16 Total Protein 5.7 g/dL (6.3-8.2) L 03/12/18 04:38 Albumin 3.5 g/dL (3.9-5) L 03/12/18 04:38 Albumin/Globulin Ratio 1.6 % 03/12/18 04:38 Triglycerides 100 mg/dL (2-149) 03/11/18 16:21 Cholesterol 212 mg/dL (50-199) H 03/11/18 16:21 LDL Cholesterol Direct 91 mg/dL (50-130) 03/11/18 16:21 HDL Cholesterol 162 mg/dL (40-59) H 03/11/18 16:21 Cholesterol/HDL Ratio 1.30 % 03/11/18 16:21 Urine Color [place] (Yellow) 03/11/18 21:35 Urine Turbidity Clear (Clear) 03/11/18 21:35 Urine pH 5.0 (5.0-7.0) 03/11/18 21:35 Ur Specific [place] 1.016 (1.003-1.030) 03/11/18 21:35 Urine Protein 100 mg/dl mg/dL (Negative) 03/11/18 21:35 Urine Glucose (UA) 50 mg/dL (Negative) 03/11/18 21:35 Urine Ketones Neg mg/dL (Negative) 03/11/18 21:35 Urine Blood Lg (Negative) 03/11/18 21:35 Urine Nitrite Neg (Negative) 03/11/18 21:35 Urine Bilirubin Neg (Negative) 03/11/18 21:35 Urine Urobilinogen < 2.0 mg/dL (<2.0) 03/11/18 21:35 Ur Leukocyte Esterase Tr (Negative) 03/11/18 21:35 Urine WBC (Auto) 25.0 /HPF (0.0-6.0) H 03/11/18 21:35 Urine RBC (Auto) 5.0 /HPF (0.0-6.0) 03/11/18 21:35 U Epithel Cells (Auto) 3.0 /HPF (0-13.0) 03/11/18 21:35 Urine Mucus 1+ /HPF 03/11/18 21:35 Salicylates < 0.3 mg/dL (2.8-20.0) L 03/11/18 16:21 Urine Opiates Screen Presumptive negative 03/11/18 21:35 Urine Methadone Screen Presumptive negative 03/11/18 21:35 Acetaminophen < 5.0 ug/mL (10.0-30.0) L 03/11/18 16:21 Ur Barbiturates Screen Presumptive negative 03/11/18 21:35 Ur Phencyclidine Scrn Presumptive negative 03/11/18 21:35 Ur Amphetamines Screen Presumptive negative 03/11/18 21:35 U Benzodiazepines Scrn Presumptive positive 03/11/18 21:35 Urine Cocaine Screen Presumptive negative 03/11/18 21:35 U Marijuana (THC) Screen Presumptive negative 03/11/18 21:35 Drugs of Abuse Note Disclamer 03/11/18 21:35 Plasma/Serum Alcohol < 0.01 % (0-0.07) 03/11/18 16:21 Blood Type A POSITIVE 03/11/18 16:34 Antibody Screen Negative 03/11/18 16:34
[2018-03-12 15:09] LABS: Hematocrit 22.5 % (35.5-45.6); Hemoglobin 7.7 gm/dl (11.8-15.2)
[2018-03-12] MEDS: PROTONIX 80 MG in NACL 0.9% 100 ML IV SCH (16:25)
[2018-03-13] MEDS: NACL 0.9% 1000 ML 1,000 ML IV SCH ×2 (01:29→17:08)
[2018-03-13] MEDS: PROTONIX 80 MG in NACL 0.9% 100 ML IV SCH ×2 (04:59→17:07)
[2018-03-13 05:59] LABS: Basophils % (Auto) 0.2 % (0.0-1.8); Eosinophils # (Auto) 0.1 K/mm3 (0.0-0.4); Eosinophils % (Auto) 0.5 % (0.0-4.3); Hemoglobin 6.9 gm/dl (11.8-15.2); Lymphocytes # (Auto) 0.6 K/mm3 (1.2-5.4); Lymphocytes % (Auto) 4.7 % (13.4-35.0); Mean Corpuscular HGB Conc 35 % (32-34); Mean Corpuscular Hemoglobin 32 pg (28-32); Mean Corpuscular Volume 93 fl (84-94); Monocytes # (Auto) 0.8 K/mm3 (0.0-0.8); Monocytes % (Auto) 6.9 % (0.0-7.3); Platelet Count 100 K/mm3 (140-440); Red Blood Count 2.14 M/mm3 (3.65-5.03); Red Cell Distribution Width 14.6 % (13.2-15.2)
[2018-03-13 06:01] LABS: Hematocrit 19.9 % (35.5-45.6)
--- NOTE | 2018-03-13 08:51 | Progress Note ---
Assessment and Plan chest pain anemia secondary to gi loss htn smoker etoh abuse nstemi type 2 acute renal failure rec: cont iv fluids, suggest blood transfusion in view of hb less than 7 with abnl trop, once stable stress test Subjective Date of service: 03/13/18 Principal diagnosis: GI bleed Interval history: no chest pain this am Objective Vital Signs Temp Pulse Pulse Resp BP BP Pulse Ox 03/13/18 08:49 97 03/13/18 08:00 73 24 94 03/13/18 04:00 98.9 F 78 78 28 H 118/75 94 03/13/18 00:00 74 23 95 03/12/18 21:11 95 03/12/18 20:00 98.2 F 86 86 19 122/82 96 03/12/18 16:40 98.4 F 03/12/18 16:00 84 84 34 H 114/77 97 03/12/18 12:52 98 03/12/18 12:00 85 85 22 116/89 96 03/12/18 11:00 98.7 F 03/12/18 10:00 82 26 H 105/72 03/12/18 09:45 90 35 H 117/74 03/12/18 09:30 88 38 H 113/75 98 03/12/18 09:15 89 34 H 109/76 100 03/12/18 09:00 81 34 H 115/76 100 - Physical Examination General: No Apparent Distress HEENT: Positive: Normocephaly, Mucus Membranes Moist Neck: Positive: neck supple, trachea midline Cardiac: Positive: Reg Rate and Rhythm Lungs: Positive: clear to auscultation Neuro: Positive: Grossly Intact Abdomen: Positive: Soft, Active Bowel Sounds Skin: Positive: Clear. Negative: Rash Extremities: Present: normal. Absent: edema - Labs and Meds CBC 03/12/18 03/12/18 03/13/18 Range/Units 12:34 14:53 05:39 WBC 11.9 H (4.5-11.0) K/mm3 RBC 2.14 L (3.65-5.03) M/mm3 Hgb 7.9 L 7.7 L 6.9 L (11.8-15.2) gm/dl Hct 23.0 L 22.5 L 19.9 L* (35.5-45.6) % Plt Count 100 L (140-440) K/mm3 Lymph # 0.6 L (1.2-5.4) K/mm3 [place] # 0.8 (0.0-0.8) K/mm3 Eos # 0.1 (0.0-0.4) K/mm3 Baso # 0.0 (0.0-0.1) K/mm3 - Imaging and Cardiology EKG: image reviewed Echo: report reviewed (normal lv function mild lvh and no signficant regurtiations ) - Telemetry EKG Rhythm: Sinus Rhythm - EKG Sinus rhythms and dysrhythmias: sinus tachycardia
--- NOTE | 2018-03-13 09:16 | Gastroenterology Progress Note ---
Assessment and Plan - Patient Problems (1) UGIB (upper gastrointestinal bleed) Current Visit: Yes Status: Acute Plan to address problem: Bleeding is likely subsiding, but H&H decreased, which may reflect mostly rehydration. Await CMP. Needs transfusion. Will plan repeat EGD today due to incomplete study on admission. Care plans discussed with patient and Dr. Patrick. (2) Renal failure, acute Current Visit: Yes Status: Acute (3) Alcohol abuse Current Visit: Yes Status: Acute Subjective Date of service: 03/13/18 Principal diagnosis: UGI bleed Interval history: The patient reports feeling better. Few stools overnight which are less dark to his observation. No N/V or abdominal pain. Objective - Constitutional Vitals: Temp Pulse Resp BP Pulse Ox 98.9 F 73 24 118/75 97 03/13/18 04:00 03/13/18 08:00 03/13/18 08:00 03/13/18 04:00 03/13/18 08:49 General appearance: no acute distress - EENT ENT: hearing intact, clear oral mucosa - Respiratory Respiratory effort: normal Respiratory: bilateral: CTA - Cardiovascular Rhythm: regular - Gastrointestinal General gastrointestinal: Present: soft, non-tender, non-distended, normal bowel sounds - Neurologic Neurological: alert and oriented x3 - Labs CBC & Chem 7: 03/13/18 05:39 03/12/18 04:38 Labs: Laboratory Results - last 24 hr 03/12/18 03/12/18 03/12/18 11:30 12:34 14:53 WBC RBC Hgb 7.9 L 7.7 L Hct 23.0 L 22.5 L MCV MCH MCHC RDW Plt Count Lymph % (Auto) [place] % (Auto) Eos % (Auto) Baso % (Auto) Lymph # [place] # Eos # Baso # Seg Neutrophils % Seg Neutrophils # POC Glucose 119 H 03/12/18 03/13/18 15:58 05:39 WBC 11.9 H RBC 2.14 L Hgb 6.9 L Hct 19.9 L* MCV 93 MCH 32 MCHC 35 H RDW 14.6 Plt Count 100 L Lymph % (Auto) 4.7 L [place] % (Auto) 6.9 Eos % (Auto) 0.5 Baso % (Auto) 0.2 Lymph # 0.6 L [place] # 0.8 Eos # 0.1 Baso # 0.0 Seg Neutrophils % 87.7 H Seg Neutrophils # 10.4 H POC Glucose 136 H
[2018-03-13] MEDS ORDERED: NACL 0.9% 500 ML 500 ML IV ONE (10:00)
[2018-03-13] MEDS ORDERED: DIPRIVAN 10 MG/ML IV ONE ×2 (10:17)
[2018-03-13] MEDS: ROCEPHIN/NS 1 GM/50 ML 1 GM/50 ML BAG IV SCH (10:21)
[2018-03-13] MEDS: SODIUM CHLORIDE FLUSH SYRINGE 10 ML IV SCH ×2 (10:22→23:00)
--- NOTE | 2018-03-13 10:30 | Progress Note ---
Assessment and Plan Assessment and plan: --Acute blood loss anemia: transfuse 1 unit PRBC --Upper GI bleeding: s/p endoscopy:: Severe, confluent esophagitis. No varices in the esophagus. Large amount of old blood on the greater curvature of the stomach, incompletely seen. Normal antrum and duodenum., Repeat endoscopy today IV protonix, GI following --Chest pain/NSTEMI type 2 Symptoms slightly improved, cardiology following No stress test in view of severe anemia --Hypertension: continue current meds,closely monitor --Acute on chronic Kidney disease: due to vasomotor nephropathy avoid nephrotoxins,nephrology consult. --Alcohol use: counselling done --DVT prophylaxis: SCD Closely monitor the patient and adjust the management as needed Plan of care reviewed with the patient and his nurse History Interval history: Patient seen and examined medical records reviewed Feels better now new complaints Scheduled for repeat endoscopy today Mild drop in H&H, type and cross transfuse 1 unit of PRBC Patient denies chest pain or shortness of breath Vital signs reviewed Hospitalist Physical - Constitutional Vitals: Temp Pulse Resp BP Pulse Ox 98.9 F 75 24 118/75 97 03/13/18 04:00 03/13/18 10:00 03/13/18 08:00 03/13/18 04:00 03/13/18 08:49 General appearance: Present: no acute distress, well-nourished - EENT Eyes: Present: PERRL, EOM intact - Neck Neck: Present: supple, normal ROM - Respiratory Respiratory effort: normal Respiratory: negative: rales, rhonchi, wheezing - Cardiovascular Rhythm: regular Heart Sounds: Present: S1 & S2 - Extremities Extremities: no ischemia, No edema - Abdominal General gastrointestinal: soft, non-tender, non-distended, normal bowel sounds - Integumentary Integumentary: Present: clear, warm - Psychiatric Psychiatric: appropriate mood/affect, cooperative - Neurologic Neurologic: CNII-XII intact, moves all extremities Results - Labs CBC & Chem 7: 03/13/18 05:39 03/13/18 10:04 Labs: Laboratory Last Values WBC 11.9 K/mm3 (4.5-11.0) H 03/13/18 05:39 RBC 2.14 M/mm3 (3.65-5.03) L 03/13/18 05:39 Hgb 6.9 gm/dl (11.8-15.2) L 03/13/18 05:39 Hct 19.9 % (35.5-45.6) L* 03/13/18 05:39 MCV 93 fl (84-94) 03/13/18 05:39 MCH 32 pg (28-32) 03/13/18 05:39 MCHC 35 % (32-34) H 03/13/18 05:39 RDW 14.6 % (13.2-15.2) 03/13/18 05:39 Plt Count 100 K/mm3 (140-440) L 03/13/18 05:39 Lymph % (Auto) 4.7 % (13.4-35.0) L 03/13/18 05:39 [place] % (Auto) 6.9 % (0.0-7.3) 03/13/18 05:39 Eos % (Auto) 0.5 % (0.0-4.3) 03/13/18 05:39 Baso % (Auto) 0.2 % (0.0-1.8) 03/13/18 05:39 Lymph # 0.6 K/mm3 (1.2-5.4) L 03/13/18 05:39 [place] # 0.8 K/mm3 (0.0-0.8) 03/13/18 05:39 Eos # 0.1 K/mm3 (0.0-0.4) 03/13/18 05:39 Baso # 0.0 K/mm3 (0.0-0.1) 03/13/18 05:39 Seg Neutrophils % 87.7 % (40.0-70.0) H 03/13/18 05:39 Seg Neutrophils # 10.4 K/mm3 (1.8-7.7) H 03/13/18 05:39 PT 13.6 Sec. (12.2-14.9) 03/11/18 16:21 INR 0.99 (0.87-1.13) 03/11/18 16:21 APTT 29.2 Sec. (24.2-36.6) 03/11/18 16:21 Sodium 134 mmol/L (137-145) L 03/12/18 04:38 Potassium 4.5 mmol/L (3.6-5.0) 03/12/18 04:38 Chloride 98.7 mmol/L (98-107) 03/12/18 04:38 Carbon Dioxide 18 mmol/L (22-30) L 03/12/18 04:38 Anion Gap 22 mmol/L 03/12/18 04:38 BUN 93 mg/dL (9-20) H 03/12/18 04:38 Creatinine 3.5 mg/dL (0.8-1.5) H 03/12/18 04:38 Estimated GFR 23 ml/min 03/12/18 04:38 BUN/Creatinine Ratio 27 % 03/12/18 04:38 Glucose 110 mg/dL (75-100) H 03/12/18 04:38 POC Glucose 136 (70-105) H 03/12/18 15:58 Calcium 7.3 mg/dL (8.4-10.2) L D 03/12/18 04:38 Total Bilirubin 2.10 mg/dL (0.1-1.2) H 03/12/18 04:38 AST 582 units/L (5-40) H 03/12/18 04:38 ALT 177 units/L (7-56) H 03/12/18 04:38 Alkaline Phosphatase 39 units/L (35-129) 03/12/18 04:38 Troponin T 0.117 ng/mL (0.00-0.029) H* D 03/11/18 22:16 Total Protein 5.7 g/dL (6.3-8.2) L 03/12/18 04:38 Albumin 3.5 g/dL (3.9-5) L 03/12/18 04:38 Albumin/Globulin Ratio 1.6 % 03/12/18 04:38 Triglycerides 100 mg/dL (2-149) 03/11/18 16:21 Cholesterol 212 mg/dL (50-199) H 03/11/18 16:21 LDL Cholesterol Direct 91 mg/dL (50-130) 03/11/18 16:21 HDL Cholesterol 162 mg/dL (40-59) H 03/11/18 16:21 Cholesterol/HDL Ratio 1.30 % 03/11/18 16:21 Urine Color [place] (Yellow) 03/11/18 21:35 Urine Turbidity Clear (Clear) 03/11/18 21:35 Urine pH 5.0 (5.0-7.0) 03/11/18 21:35 Ur Specific [place] 1.016 (1.003-1.030) 03/11/18 21:35 Urine Protein 100 mg/dl mg/dL (Negative) 03/11/18 21:35 Urine Glucose (UA) 50 mg/dL (Negative) 03/11/18 21:35 Urine Ketones Neg mg/dL (Negative) 03/11/18 21:35 Urine Blood Lg (Negative) 03/11/18 21:35 Urine Nitrite Neg (Negative) 03/11/18 21:35 Urine Bilirubin Neg (Negative) 03/11/18 21:35 Urine Urobilinogen < 2.0 mg/dL (<2.0) 03/11/18 21:35 Ur Leukocyte Esterase Tr (Negative) 03/11/18 21:35 Urine WBC (Auto) 25.0 /HPF (0.0-6.0) H 03/11/18 21:35 Urine RBC (Auto) 5.0 /HPF (0.0-6.0) 03/11/18 21:35 U Epithel Cells (Auto) 3.0 /HPF (0-13.0) 03/11/18 21:35 Urine Mucus 1+ /HPF 03/11/18 21:35 Salicylates < 0.3 mg/dL (2.8-20.0) L 03/11/18 16:21 Urine Opiates Screen Presumptive negative 03/11/18 21:35 Urine Methadone Screen Presumptive negative 03/11/18 21:35 Acetaminophen < 5.0 ug/mL (10.0-30.0) L 03/11/18 16:21 Ur Barbiturates Screen Presumptive negative 03/11/18 21:35 Ur Phencyclidine Scrn Presumptive negative 03/11/18 21:35 Ur Amphetamines Screen Presumptive negative 03/11/18 21:35 U Benzodiazepines Scrn Presumptive positive 03/11/18 21:35 Urine Cocaine Screen Presumptive negative 03/11/18 21:35 U Marijuana (THC) Screen Presumptive negative 03/11/18 21:35 Drugs of Abuse Note Disclamer 03/11/18 21:35 Plasma/Serum Alcohol < 0.01 % (0-0.07) 03/11/18 16:21 Blood Type A POSITIVE 03/11/18 16:34 Antibody Screen Negative 03/11/18 16:34 Crossmatch See Detail 03/11/18 16:34
[2018-03-13] MEDS ORDERED: NACL 0.9% 1000 ML 1,000 ML IV SCH (11:00)
[2018-03-13 11:07] LABS: Albumin 3.1 g/dL (3.9-5); BUN/Creatinine Ratio 33; Blood Urea Nitrogen 33 mg/dL (9-20); Calcium 8.8 mg/dL (8.4-10.2); Hemolysis Index 8
[2018-03-13 11:20] LABS: Alanine Aminotransferase 885 units/L (7-56)
[2018-03-13] MEDS ORDERED: NACL 0.9% 1000 ML 1,000 ML ONE (11:24)
[2018-03-13] MEDS ORDERED: WATER FOR IRRIG STERILE IR ONE ×2 (11:31→15:37)
[2018-03-13] MEDS ORDERED: NACL 0.9% 100 ML ONE (12:00)
--- NOTE | 2018-03-13 12:34 | Operative Report ---
Operative Report Operative Report: Date of procedure: 03/13/2018 Procedure: Esophagogastroduodenoscopy Preprocedure diagnosis: Acute upper GI bleeding with falling H&H. Previously incomplete study due to the presence of a large amount of blood. Post procedure diagnosis: Severe distal esophagitis. No esophageal varices or gastric varices. Endoscopist: Dr. Castillo Anesthesia: Monitored anesthesia care per anesthesia department Medications: Propofol per anesthesia Estimated blood loss: 0 After careful discussion of the nature and purpose of the procedure as well as details the technique risks benefits and alternatives consent was obtained. The patient was placed in the left lateral decubitus position and medicated per anesthesia. The tip of the LeTV EQ 570 video scope was passed per orum under direct vision into the esophagus and advanced into the stomach and descending duodenum. The descending duodenum the duodenal bulb and pylorus were symmetrical and normal. The scope was withdrawn into the stomach and the stomach then gently insufflated with air. The antrum was normal. The stomach was further insufflated and the scope was then retroflexed and partially withdrawn. The cardia, fundus, and body of the stomach were well seen and were within normal limits and easily distensible.there were no varices in particular in the fundus or cardia. The scope was then withdrawn in the forward position. The esophagogastric junction was at 40 cm. The distal third of the esophagus was severely inflamed and ulcerated. No discrete varices were present. The middle and proximal third of the esophagus were well seen and within normal limits, having improved in appearance. The procedure was was well tolerated and the patient was observed in recovery. Impressions: Severe distal esophagitis. No gastric or esophageal varices. No active bleeding. Low risk of rebleeding. Plan: Advance diet. Continue PPI therapy. Avoidance of NSAIDs and alcohol. I will sign off at this point in follow-up at your request. Electronically signed: Jose Castillo MD
--- NOTE | 2018-03-13 12:37 | Event Note ---
Date: 03/13/18 Addendum: Repeat CMP revealed marked elevation and increase in the AST and ALT levels. The patient mostly likely has a shock liver as he was hypotensive on presentation with UGI bleed. He may have superimposed ETOH liver disease as well. Will obtain hepatitis studies and f/u LFTs.
[2018-03-13 14:53] LABS: Hepatitis A Antibody IgM Non-Reactive (NonReactive); Hepatitis B Core IgM Non-Reactive (NonReactive); Hepatitis B Surface Antigen Non-Reactive (Negative); Hepatitis C Virus Antibody Non-Reactive (NonReactive)
[2018-03-13] MEDS ORDERED: XYLOCAINE MPF 2% ONE (15:00)
[2018-03-13] MEDS ORDERED: APRESOLINE IV PRN (18:46)
[2018-03-13] MEDS: APRESOLINE PO SCH (22:55)
[2018-03-14 05:10] LABS: Hematocrit 23.9 % (35.5-45.6); Hemoglobin 8.1 gm/dl (11.8-15.2); Mean Corpuscular HGB Conc 34 % (32-34); Mean Corpuscular Hemoglobin 31 pg (28-32); Mean Corpuscular Volume 93 fl (84-94); Platelet Count 146 K/mm3 (140-440); Red Blood Count 2.58 M/mm3 (3.65-5.03); Red Cell Distribution Width 14.7 % (13.2-15.2)
[2018-03-14] MEDS: NACL 0.9% 1000 ML 1,000 ML IV SCH (05:16)
[2018-03-14] MEDS: APRESOLINE PO SCH ×3 (05:22→21:16)
[2018-03-14 05:55] LABS: Albumin 3.3 g/dL (3.9-5); BUN/Creatinine Ratio 20; Blood Urea Nitrogen 14 mg/dL (9-20); Calcium 8.3 mg/dL (8.4-10.2); Hemolysis Index 5
[2018-03-14 06:26] LABS: Alanine Aminotransferase 876 units/L (7-56)
[2018-03-14 07:49] LABS: Anisocytosis 1+; Band Neutrophils # (Manual) 3.8 K/mm3; Basophils % (Manual) 0 % (0.0-1.8); Eosinophils % (Manual) 0 % (0.0-4.3); Hypochromasia Few; Smudge Cells Few; Total Cells Counted 100
[2018-03-14 07:50] LABS: Platelet Estimate Consistent w Auto; Tear Drop Cells Rare
[2018-03-14] MEDS: PROTONIX 80 MG in NACL 0.9% 100 ML IV SCH (08:02)
--- NOTE | 2018-03-14 09:42 | Progress Note ---
Assessment and Plan Assessment and plan: -- Shock liver: severe trasaminitis: transaminases trending down, closely monitor --Acute blood loss anemia: s/p transfusion, closely monitor H&H --Upper GI bleeding: s/p endoscopy x2: Severe, confluent esophagitis. No varices in the esophagus. Large amount of old blood on the greater curvature of the stomach,and lower duodenum.,IV protonix, --Chest pain/NSTEMI type 2; stress test is negative for reversible ischemia and normal ejection fraction Symptoms resolved --Hypertension: continue current meds,closely monitor --Acute on chronic Kidney disease: due to vasomotor nephropathy Resolved --Alcohol use: counselling done, advised to quit alcohol intake --DVT prophylaxis: SCD Closely monitor transaminases, may discharge home tomorrow if stable Plan of care reviewed with the patient and his nurse History Interval history: Patient seen and evaluated medical records reviewed no new events reported by the nursing staff Patient has severely elevated LFTs, probably secondary to shock liver No new complaints Vital signs stable Hospitalist Physical - Constitutional Vitals: Temp Pulse Resp BP Pulse Ox 99.2 F 91 H 27 H 148/94 100 03/14/18 08:00 03/14/18 05:22 03/14/18 04:00 03/14/18 05:22 03/14/18 04:00 General appearance: Present: no acute distress, well-nourished - EENT Eyes: Present: PERRL, EOM intact - Neck Neck: Present: supple, normal ROM - Respiratory Respiratory effort: normal Respiratory: bilateral: diminished, negative: rales, rhonchi, wheezing - Cardiovascular Rhythm: regular Heart Sounds: Present: S1 & S2 - Extremities Extremities: no ischemia, No edema - Abdominal General gastrointestinal: soft, non-tender, non-distended, normal bowel sounds - Integumentary Integumentary: Present: clear, warm - Psychiatric Psychiatric: appropriate mood/affect, cooperative - Neurologic Neurologic: CNII-XII intact, moves all extremities Results - Labs CBC & Chem 7: 03/14/18 04:39 03/14/18 04:39 Labs: Laboratory Last Values WBC 17.4 K/mm3 (4.5-11.0) H 03/14/18 04:39 RBC 2.58 M/mm3 (3.65-5.03) L 03/14/18 04:39 Hgb 8.1 gm/dl (11.8-15.2) L 03/14/18 04:39 Hct 23.9 % (35.5-45.6) L 03/14/18 04:39 MCV 93 fl (84-94) 03/14/18 04:39 MCH 31 pg (28-32) 03/14/18 04:39 MCHC 34 % (32-34) 03/14/18 04:39 RDW 14.7 % (13.2-15.2) 03/14/18 04:39 Plt Count 146 K/mm3 (140-440) 03/14/18 04:39 Lymph % (Auto) 4.7 % (13.4-35.0) L 03/13/18 05:39 [place] % (Auto) 6.9 % (0.0-7.3) 03/13/18 05:39 Eos % (Auto) 0.5 % (0.0-4.3) 03/13/18 05:39 Baso % (Auto) 0.2 % (0.0-1.8) 03/13/18 05:39 Lymph # 0.6 K/mm3 (1.2-5.4) L 03/13/18 05:39 [place] # 0.8 K/mm3 (0.0-0.8) 03/13/18 05:39 Eos # 0.1 K/mm3 (0.0-0.4) 03/13/18 05:39 Baso # 0.0 K/mm3 (0.0-0.1) 03/13/18 05:39 Add Manual Diff Complete 03/14/18 04:39 Total Counted 100 03/14/18 04:39 Seg Neutrophils % 87.7 % (40.0-70.0) H 03/13/18 05:39 Seg Neuts % (Manual) 58.0 % (40.0-70.0) 03/14/18 04:39 Band Neutrophils % 22.0 % 03/14/18 04:39 Lymphocytes % (Manual) 5.0 % (13.4-35.0) L 03/14/18 04:39 Reactive Lymphs % (Man) 0 % 03/14/18 04:39 Monocytes % (Manual) 15.0 % (0.0-7.3) H 03/14/18 04:39 Eosinophils % (Manual) 0 % (0.0-4.3) 03/14/18 04:39 Basophils % (Manual) 0 % (0.0-1.8) 03/14/18 04:39 Metamyelocytes % 0 % 03/14/18 04:39 Myelocytes % 0 % 03/14/18 04:39 Promyelocytes % 0 % 03/14/18 04:39 Blast Cells % 0 % 03/14/18 04:39 Nucleated RBC % 8.0 % (0.0-0.9) H 03/14/18 04:39 Seg Neutrophils # 10.4 K/mm3 (1.8-7.7) H 03/13/18 05:39 Seg Neutrophils # Man 10.1 K/mm3 (1.8-7.7) H 03/14/18 04:39 Band Neutrophils # 3.8 K/mm3 03/14/18 04:39 Lymphocytes # (Manual) 0.9 K/mm3 (1.2-5.4) L 03/14/18 04:39 Abs React Lymphs (Man) 0.0 K/mm3 03/14/18 04:39 Monocytes # (Manual) 2.6 K/mm3 (0.0-0.8) H 03/14/18 04:39 Eosinophils # (Manual) 0.0 K/mm3 (0.0-0.4) 03/14/18 04:39 Basophils # (Manual) 0.0 K/mm3 (0.0-0.1) 03/14/18 04:39 Metamyelocytes # 0.0 K/mm3 03/14/18 04:39 Myelocytes # 0.0 K/mm3 03/14/18 04:39 Promyelocytes # 0.0 K/mm3 03/14/18 04:39 Blast Cells # 0.0 K/mm3 03/14/18 04:39 WBC Morphology Not Reportable 03/14/18 04:39 Hypersegmented Neuts Not Reportable 03/14/18 04:39 Hyposegmented Neuts Not Reportable 03/14/18 04:39 Hypogranular Neuts Not Reportable 03/14/18 04:39 Smudge Cells Few 03/14/18 04:39 Toxic Granulation Not Reportable 03/14/18 04:39 Toxic Vacuolation Not Reportable 03/14/18 04:39 Dohle Bodies Not Reportable 03/14/18 04:39 Pelger-Huet Anomaly Not Reportable 03/14/18 04:39 Arnold Rods Not Reportable 03/14/18 04:39 Platelet Estimate Consistent w auto 03/14/18 04:39 Clumped Platelets Not Reportable 03/14/18 04:39 Plt Clumps, EDTA Not Reportable 03/14/18 04:39 Large Platelets Not Reportable 03/14/18 04:39 Giant Platelets Not Reportable 03/14/18 04:39 Platelet Satelliting Not Reportable 03/14/18 04:39 Plt Morphology Comment Not Reportable 03/14/18 04:39 RBC Morphology Not Reportable 03/14/18 04:39 Dimorphic RBCs Not Reportable 03/14/18 04:39 Polychromasia Not Reportable 03/14/18 04:39 Hypochromasia Few 03/14/18 04:39 Poikilocytosis Not Reportable 03/14/18 04:39 Anisocytosis 1+ 03/14/18 04:39 Microcytosis Not Reportable 03/14/18 04:39 Macrocytosis Not Reportable 03/14/18 04:39 Spherocytes Not Reportable 03/14/18 04:39 Pappenheimer Bodies Not Reportable 03/14/18 04:39 Sickle Cells Not Reportable 03/14/18 04:39 Target Cells Not Reportable 03/14/18 04:39 Tear Drop Cells Rare 03/14/18 04:39 Ovalocytes Not Reportable 03/14/18 04:39 Helmet Cells Not Reportable 03/14/18 04:39 [place] Bodies Not Reportable 03/14/18 04:39 [place] Rings Not Reportable 03/14/18 04:39 [place] Cells Not Reportable 03/14/18 04:39 Bite Cells Not Reportable 03/14/18 04:39 Crenated Cell Not Reportable 03/14/18 04:39 Elliptocytes Not Reportable 03/14/18 04:39 Acanthocytes (Spur) Not Reportable 03/14/18 04:39 Rouleaux Not Reportable 03/14/18 04:39 Hemoglobin C Crystals Not Reportable 03/14/18 04:39 Schistocytes Not Reportable 03/14/18 04:39 Malaria parasites Not Reportable 03/14/18 04:39 Iraj Bodies Not Reportable 03/14/18 04:39 Hem Pathologist Commnt No 03/14/18 04:39 PT 13.6 Sec. (12.2-14.9) 03/11/18 16:21 INR 0.99 (0.87-1.13) 03/11/18 16:21 APTT 29.2 Sec. (24.2-36.6) 03/11/18 16:21 Sodium 133 mmol/L (137-145) L 03/14/18 04:39 Potassium 3.6 mmol/L (3.6-5.0) 03/14/18 04:39 Chloride 96.4 mmol/L (98-107) L 03/14/18 04:39 Carbon Dioxide 22 mmol/L (22-30) 03/14/18 04:39 Anion Gap 18 mmol/L 03/14/18 04:39 BUN 14 mg/dL (9-20) 03/14/18 04:39 Creatinine 0.7 mg/dL (0.8-1.5) L 03/14/18 04:39 Estimated GFR > 60 ml/min 03/14/18 04:39 BUN/Creatinine Ratio 20 % 03/14/18 04:39 Glucose 89 mg/dL (75-100) 03/14/18 04:39 POC Glucose 117 (70-105) H 03/13/18 21:33 Calcium 8.3 mg/dL (8.4-10.2) L 03/14/18 04:39 Total Bilirubin 1.10 mg/dL (0.1-1.2) 03/14/18 04:39 AST 1618 units/L (5-40) H 03/14/18 04:39 ALT 876 units/L (7-56) H 03/14/18 04:39 Alkaline Phosphatase 85 units/L (35-129) 03/14/18 04:39 Troponin T 0.117 ng/mL (0.00-0.029) H* D 03/11/18 22:16 Total Protein 6.2 g/dL (6.3-8.2) L 03/14/18 04:39 Albumin 3.3 g/dL (3.9-5) L 03/14/18 04:39 Albumin/Globulin Ratio 1.1 % 03/14/18 04:39 Triglycerides 100 mg/dL (2-149) 03/11/18 16:21 Cholesterol 212 mg/dL (50-199) H 03/11/18 16:21 LDL Cholesterol Direct 91 mg/dL (50-130) 03/11/18 16:21 HDL Cholesterol 162 mg/dL (40-59) H 03/11/18 16:21 Cholesterol/HDL Ratio 1.30 % 03/11/18 16:21 Urine Color Luci (Yellow) 03/11/18 21:35 Urine Turbidity Clear (Clear) 03/11/18 21:35 Urine pH 5.0 (5.0-7.0) 03/11/18 21:35 Ur Specific Nelson 1.016 (1.003-1.030) 03/11/18 21:35 Urine Protein 100 mg/dl mg/dL (Negative) 03/11/18 21:35 Urine Glucose (UA) 50 mg/dL (Negative) 03/11/18 21:35 Urine Ketones Neg mg/dL (Negative) 03/11/18 21:35 Urine Blood Lg (Negative) 03/11/18 21:35 Urine Nitrite Neg (Negative) 03/11/18 21:35 Urine Bilirubin Neg (Negative) 03/11/18 21:35 Urine Urobilinogen < 2.0 mg/dL (<2.0) 03/11/18 21:35 Ur Leukocyte Esterase Tr (Negative) 03/11/18 21:35 Urine WBC (Auto) 25.0 /HPF (0.0-6.0) H 03/11/18 21:35 Urine RBC (Auto) 5.0 /HPF (0.0-6.0) 03/11/18 21:35 U Epithel Cells (Auto) 3.0 /HPF (0-13.0) 03/11/18 21:35 Urine Mucus 1+ /HPF 03/11/18 21:35 Salicylates < 0.3 mg/dL (2.8-20.0) L 03/11/18 16:21 Urine Opiates Screen Presumptive negative 03/11/18 21:35 Urine Methadone Screen Presumptive negative 03/11/18 21:35 Acetaminophen < 5.0 ug/mL (10.0-30.0) L 03/11/18 16:21 Ur Barbiturates Screen Presumptive negative 03/11/18 21:35 Ur Phencyclidine Scrn Presumptive negative 03/11/18 21:35 Ur Amphetamines Screen Presumptive negative 03/11/18 21:35 U Benzodiazepines Scrn Presumptive positive 03/11/18 21:35 Urine Cocaine Screen Presumptive negative 03/11/18 21:35 U Marijuana (THC) Screen Presumptive negative 03/11/18 21:35 Drugs of Abuse Note Disclamer 03/11/18 21:35 Plasma/Serum Alcohol < 0.01 % (0-0.07) 03/11/18 16:21 Hepatitis A IgM Ab Non-reactive (NonReactive) 03/13/18 13:32 Hep Bs Antigen Non-reactive (Negative) 03/13/18 13:32 Hep B Core IgM Ab Non-reactive (NonReactive) 03/13/18 13:32 Hepatitis C Antibody Non-reactive (NonReactive) 03/13/18 13:32 Blood Type A POSITIVE 03/11/18 16:34 Antibody Screen Negative 03/11/18 16:34 Crossmatch See Detail 03/11/18 16:34
[2018-03-14] MEDS: SODIUM CHLORIDE FLUSH SYRINGE 10 ML IV SCH ×2 (10:00→21:17)
[2018-03-14] MEDS: ROCEPHIN/NS 1 GM/50 ML 1 GM/50 ML BAG IV SCH (10:00)
[2018-03-14] MEDS ORDERED: LEXISCAN IV ONE ×2 (10:56→11:23)
--- NOTE | 2018-03-14 11:40 | Progress Note ---
Assessment and Plan Await stress MPI results. The patient has been seen in conjunction with Dr. Lacy who agrees with the assessment and plan of care. - Patient Problems (1) Chest pain Current Visit: Yes Status: Acute (2) NSTEMI (non-ST elevated myocardial infarction) Current Visit: Yes Status: Acute (3) UGIB (upper gastrointestinal bleed) Current Visit: Yes Status: Acute (4) Renal failure, acute Current Visit: Yes Status: Resolved (5) Transaminitis Current Visit: Yes Status: Acute (6) Alcohol withdrawal Current Visit: Yes Status: Acute (7) HTN (hypertension) Current Visit: Yes Status: Chronic Subjective Date of service: 03/14/18 Principal diagnosis: UGI bleed, chest pain Interval history: The patient is resting in bed. C/o intermittent, sharp, left sided chest pain. Awaiting stress test this morning. Sinus rhythm on the monitor. Objective Last Vital Signs Temp 99.2 F 03/14/18 08:00 Pulse 84 03/14/18 08:00 Resp 24 03/14/18 08:00 BP 148/94 03/14/18 05:22 Pulse Ox 96 03/14/18 08:00 - Physical Examination General: No Apparent Distress HEENT: Positive: Normocephaly, Mucus Membranes Moist Neck: Positive: neck supple, trachea midline Cardiac: Positive: Reg Rate and Rhythm, S1/S2 Neuro: Positive: Grossly Intact Abdomen: Positive: Soft, Active Bowel Sounds Skin: Positive: Clear. Negative: Rash Extremities: Present: normal. Absent: edema - Labs and Meds Cardiac Enzymes 03/14/18 Range/Units 04:39 AST 1618 H (5-40) units/L CBC 03/14/18 Range/Units 04:39 WBC 17.4 H (4.5-11.0) K/mm3 RBC 2.58 L (3.65-5.03) M/mm3 Hgb 8.1 L (11.8-15.2) gm/dl Hct 23.9 L (35.5-45.6) % Plt Count 146 (140-440) K/mm3 Comprehensive Metabolic Panel 03/14/18 Range/Units 04:39 Sodium 133 L (137-145) mmol/L Potassium 3.6 (3.6-5.0) mmol/L Chloride 96.4 L (98-107) mmol/L Carbon Dioxide 22 (22-30) mmol/L BUN 14 (9-20) mg/dL Creatinine 0.7 L (0.8-1.5) mg/dL Glucose 89 (75-100) mg/dL Calcium 8.3 L (8.4-10.2) mg/dL AST 1618 H (5-40) units/L ALT 876 H (7-56) units/L Alkaline Phosphatase 85 (35-129) units/L Total Protein 6.2 L (6.3-8.2) g/dL Albumin 3.3 L (3.9-5) g/dL - Imaging and Cardiology EKG: image reviewed Echo: report reviewed (normal lv function mild lvh and no signficant regurtiations ) - Telemetry EKG Rhythm: Sinus Rhythm - EKG Sinus rhythms and dysrhythmias: sinus tachycardia
--- NOTE | 2018-03-14 12:24 | Gastroenterology Progress Note ---
Assessment and Plan - Patient Problems (1) UGIB (upper gastrointestinal bleed) Current Visit: Yes Status: Acute Plan to address problem: No recurrent bleeding. Stable on PPI therapy to go home. (2) Renal failure, acute Current Visit: Yes Status: Resolved (3) Alcohol abuse Current Visit: Yes Status: Acute (4) Transaminitis Current Visit: Yes Status: Acute Plan to address problem: Shock liver from hypotension on admission. LFTs rapidly improving c/w acute transient injury. Hepatitis screen negative. Stable clinically. Good prognosis, although some ETOH liver disease may be also present. Office f/u advised in 3 weeks. Subjective Date of service: 03/14/18 Principal diagnosis: UGI bleed Interval history: Feels great. Denies abdominal pain, n/v melena overnight Objective - Constitutional Vitals: Temp Pulse Resp BP Pulse Ox 99.2 F 86 24 121/77 96 03/14/18 08:00 03/14/18 11:12 03/14/18 08:00 03/14/18 11:12 03/14/18 08:00 General appearance: no acute distress - EENT ENT: hearing intact, clear oral mucosa, dentition normal - Respiratory Respiratory effort: normal Respiratory: bilateral: CTA - Cardiovascular Rhythm: regular - Gastrointestinal General gastrointestinal: Present: soft, non-tender, non-distended, normal bowel sounds - Neurologic Neurological: alert and oriented x3 - Psychiatric Psychiatric: appropriate mood/affect, intact judgment & insight, cooperative, no agitated - Labs CBC & Chem 7: 03/14/18 04:39 03/14/18 04:39 Labs: Laboratory Results - last 24 hr 03/11/18 03/13/18 03/13/18 16:34 13:32 21:33 WBC RBC Hgb Hct MCV MCH MCHC RDW Plt Count Add Manual Diff Total Counted Seg Neuts % (Manual) Band Neutrophils % Lymphocytes % (Manual) Reactive Lymphs % (Man) Monocytes % (Manual) Eosinophils % (Manual) Basophils % (Manual) Metamyelocytes % Myelocytes % Promyelocytes % Blast Cells % Nucleated RBC % Seg Neutrophils # Man Band Neutrophils # Lymphocytes # (Manual) Abs React Lymphs (Man) Monocytes # (Manual) Eosinophils # (Manual) Basophils # (Manual) Metamyelocytes # Myelocytes # Promyelocytes # Blast Cells # WBC Morphology Hypersegmented Neuts Hyposegmented Neuts Hypogranular Neuts Smudge Cells Toxic Granulation Toxic Vacuolation Dohle Bodies Pelger-Huet Anomaly Arnold Rods Platelet Estimate Clumped Platelets Plt Clumps, EDTA Large Platelets Giant Platelets Platelet Satelliting Plt Morphology Comment RBC Morphology Dimorphic RBCs Polychromasia Hypochromasia Poikilocytosis Anisocytosis Microcytosis Macrocytosis Spherocytes Pappenheimer Bodies Sickle Cells Target Cells Tear Drop Cells Ovalocytes Helmet Cells [place] Bodies [place] Rings [place] Cells Bite Cells Crenated Cell Elliptocytes Acanthocytes (Spur) Rouleaux Hemoglobin C Crystals Schistocytes Malaria parasites Iraj Bodies Hem Pathologist Commnt Sodium Potassium Chloride Carbon Dioxide Anion Gap BUN Creatinine Estimated GFR BUN/Creatinine Ratio Glucose POC Glucose 117 H Calcium Total Bilirubin AST ALT Alkaline Phosphatase Total Protein Albumin Albumin/Globulin Ratio Hepatitis A IgM Ab Non-reactive Hep Bs Antigen Non-reactive Hep B Core IgM Ab Non-reactive Hepatitis C Antibody Non-reactive Crossmatch See Detail 03/14/18 03/14/18 04:39 04:39 WBC 17.4 H RBC 2.58 L Hgb 8.1 L Hct 23.9 L MCV 93 MCH 31 MCHC 34 RDW 14.7 Plt Count 146 Add Manual Diff Complete Total Counted 100 Seg Neuts % (Manual) 58.0 Band Neutrophils % 22.0 Lymphocytes % (Manual) 5.0 L Reactive Lymphs % (Man) 0 Monocytes % (Manual) 15.0 H Eosinophils % (Manual) 0 Basophils % (Manual) 0 Metamyelocytes % 0 Myelocytes % 0 Promyelocytes % 0 Blast Cells % 0 Nucleated RBC % 8.0 H Seg Neutrophils # Man 10.1 H Band Neutrophils # 3.8 Lymphocytes # (Manual) 0.9 L Abs React Lymphs (Man) 0.0 Monocytes # (Manual) 2.6 H Eosinophils # (Manual) 0.0 Basophils # (Manual) 0.0 Metamyelocytes # 0.0 Myelocytes # 0.0 Promyelocytes # 0.0 Blast Cells # 0.0 WBC Morphology Not Reportable Hypersegmented Neuts Not Reportable Hyposegmented Neuts Not Reportable Hypogranular Neuts Not Reportable Smudge Cells Few Toxic Granulation Not Reportable Toxic Vacuolation Not Reportable Dohle Bodies Not Reportable Pelger-Huet Anomaly Not Reportable Arnold Rods Not Reportable Platelet Estimate Consistent w auto Clumped Platelets Not Reportable Plt Clumps, EDTA Not Reportable Large Platelets Not Reportable Giant Platelets Not Reportable Platelet Satelliting Not Reportable Plt Morphology Comment Not Reportable RBC Morphology Not Reportable Dimorphic RBCs Not Reportable Polychromasia Not Reportable Hypochromasia Few Poikilocytosis Not Reportable Anisocytosis 1+ Microcytosis Not Reportable Macrocytosis Not Reportable Spherocytes Not Reportable Pappenheimer Bodies Not Reportable Sickle Cells Not Reportable Target Cells Not Reportable Tear Drop Cells Rare Ovalocytes Not Reportable Helmet Cells Not Reportable [place] Bodies Not Reportable [place] Rings Not Reportable [place] Cells Not Reportable Bite Cells Not Reportable Crenated Cell Not Reportable Elliptocytes Not Reportable Acanthocytes (Spur) Not Reportable Rouleaux Not Reportable Hemoglobin C Crystals Not Reportable Schistocytes Not Reportable Malaria parasites Not Reportable Iraj Bodies Not Reportable Hem Pathologist Commnt No Sodium 133 L Potassium 3.6 Chloride 96.4 L Carbon Dioxide 22 Anion Gap 18 BUN 14 Creatinine 0.7 L Estimated GFR > 60 BUN/Creatinine Ratio 20 Glucose 89 POC Glucose Calcium 8.3 L Total Bilirubin 1.10 AST 1618 H ALT 876 H Alkaline Phosphatase 85 Total Protein 6.2 L Albumin 3.3 L Albumin/Globulin Ratio 1.1 Hepatitis A IgM Ab Hep Bs Antigen Hep B Core IgM Ab Hepatitis C Antibody Crossmatch
--- NOTE | 2018-03-14 13:10 | Treadmill Report ---
NUCLEAR PERFUSION STUDY REASON FOR STUDY: Chest pain. READING PHYSICIAN: Sam Contreras MD IMAGING PROTOCOL: Single isotope used documented as single isotope protocol. IMAGING RESULTS: Normal cavity size from stress to rest. Normal distribution of radionuclide in anterior, inferior, septal, and apical regions. Gated SPECT, EF 61% with no wall motion abnormality. The patient infused Lexiscan with no EKG changes. SUMMARY: 1. Negative Lexiscan EKG. 2. Normal rest and stress myocardial perfusion scan. No significant stress ischemia. No wall motion abnormality. Gated SPECT, ejection fraction 67%. JOB# [id number] RAFFI/TIM
[2018-03-14] MEDS: PROTONIX PO SCH (21:17)
[2018-03-15 05:56] LABS: Hematocrit 24.4 % (35.5-45.6); Hemoglobin 8.2 gm/dl (11.8-15.2); Mean Corpuscular HGB Conc 34 % (32-34); Mean Corpuscular Hemoglobin 31 pg (28-32); Mean Corpuscular Volume 92 fl (84-94); Platelet Count 242 K/mm3 (140-440); Red Blood Count 2.65 M/mm3 (3.65-5.03); Red Cell Distribution Width 14.3 % (13.2-15.2)
[2018-03-15] MEDS: APRESOLINE PO SCH (06:25)
[2018-03-15 06:48] LABS: Albumin 3.1 g/dL (3.9-5); Bilirubin,Direct 0.3 mg/dL (0-0.2)
[2018-03-15 07:25] LABS: Band Neutrophils # (Manual) 1.4 K/mm3; Myelocytes # (Manual) 0.3 K/mm3; Total Cells Counted 100
[2018-03-15 07:29] LABS: Anisocytosis 1+; Burr Cells 1+; Hypochromasia Few
[2018-03-15 07:30] LABS: Platelet Estimate Consistent w Auto; Stomatocytes Few; Target Cells Rare
[2018-03-15] MEDS: ROCEPHIN/NS 1 GM/50 ML 1 GM/50 ML BAG IV SCH (10:06)
[2018-03-15] MEDS: PROTONIX PO SCH (10:07)
[2018-03-15] MEDS: SODIUM CHLORIDE FLUSH SYRINGE 10 ML IV SCH (10:07)
--- NOTE | 2018-03-15 11:15 | Progress Note ---
Assessment and Plan Stress MPI negative for ischemia. Stable cardiac status. Patient may be discharged from a cardiac standpoint. Follow up in the office in 1-2 weeks. The patient has been seen in conjunction with Dr. Lacy who agrees with the assessment and plan of care. - Patient Problems (1) Chest pain Current Visit: Yes Status: Acute (2) NSTEMI (non-ST elevated myocardial infarction) Current Visit: Yes Status: Acute (3) UGIB (upper gastrointestinal bleed) Current Visit: Yes Status: Acute (4) Renal failure, acute Current Visit: Yes Status: Resolved (5) Transaminitis Current Visit: Yes Status: Acute (6) Alcohol withdrawal Current Visit: Yes Status: Acute (7) HTN (hypertension) Current Visit: Yes Status: Chronic Subjective Date of service: 03/15/18 Principal diagnosis: UGI bleed Interval history: The patient is resting in bed. Sinus rhythm on the monitor. Objective Last Vital Signs Temp 98.6 F 03/15/18 08:00 Pulse 73 03/15/18 10:00 Resp 19 03/15/18 08:00 BP 135/86 03/15/18 08:00 Pulse Ox 99 03/15/18 04:00 - Physical Examination General: No Apparent Distress HEENT: Positive: Normocephaly, Mucus Membranes Moist Neck: Positive: neck supple, trachea midline Cardiac: Positive: Reg Rate and Rhythm, S1/S2 Lungs: Positive: clear to auscultation Neuro: Positive: Grossly Intact Abdomen: Positive: Soft, Active Bowel Sounds Skin: Positive: Clear. Negative: Rash Extremities: Present: normal. Absent: edema - Labs and Meds Cardiac Enzymes 03/15/18 Range/Units 05:40 AST 546 H (5-40) units/L CBC 03/15/18 Range/Units 05:40 WBC 13.5 H (4.5-11.0) K/mm3 RBC 2.65 L (3.65-5.03) M/mm3 Hgb 8.2 L (11.8-15.2) gm/dl Hct 24.4 L (35.5-45.6) % Plt Count 242 (140-440) K/mm3 Comprehensive Metabolic Panel 03/15/18 Range/Units 05:40 Direct Bilirubin 0.3 H (0-0.2) mg/dL Indirect Bilirubin 0.4 mg/dL AST 546 H (5-40) units/L ALT 550 H (7-56) units/L Alkaline Phosphatase 88 (35-129) units/L Total Protein 6.0 L (6.3-8.2) g/dL Albumin 3.1 L (3.9-5) g/dL - Imaging and Cardiology EKG: image reviewed Echo: report reviewed (normal lv function mild lvh and no signficant regurtiations ) - Telemetry EKG Rhythm: Sinus Rhythm - EKG Sinus rhythms and dysrhythmias: sinus tachycardia
--- NOTE | 2018-03-15 15:00 | Discharge Summary ---
Providers - Providers Date of Admission: 03/11/18 20:34 Date of discharge: 03/15/18 Attending physician: MONY DUEÑAS 03/11/18 20:34 Consult to Physician [CONS] Routine Comment: Consulting Provider: LUX MARTELL Physician Instructions: Reason For Exam: GI bleed Primary care physician: GASOLINE ENGINE INSPECTOR Hospitalization Condition: Serious Disposition: DC-01 TO HOME OR SELFCARE Time spent for discharge: 32 min Core Measure Documentation - Palliative Care Palliative Care/ Comfort Measures: Not Applicable - Core Measures Any of the following diagnoses?: none Exam - Constitutional Vitals: Temp Pulse Resp BP Pulse Ox 98.7 F 73 19 135/86 99 03/15/18 12:00 03/15/18 10:00 03/15/18 08:00 03/15/18 08:00 03/15/18 04:00 General appearance: Present: no acute distress, well-nourished - EENT Eyes: Present: PERRL, EOM intact - Neck Neck: Present: supple, normal ROM - Respiratory Respiratory effort: normal Respiratory: negative: rales, rhonchi, wheezing - Cardiovascular Rhythm: regular Heart Sounds: Present: S1 & S2 - Extremities Extremities: no ischemia, No edema Peripheral Pulses: within normal limits - Abdominal General gastrointestinal: Present: soft, non-tender, non-distended, normal bowel sounds - Integumentary Integumentary: Present: clear, warm - Musculoskeletal Musculoskeletal: strength equal bilaterally - Psychiatric Psychiatric: appropriate mood/affect, cooperative - Neurologic Neurologic: CNII-XII intact, moves all extremities Plan Activity: no restrictions Diet: regular Additional Instructions: Advised to quit alcohol intake. Advised to go for alcohol rehabilitation. Avoid NSAID group of medications. If you notice new episode of bleeding, contact M.D. or go to emergency room. Check liver function tests in 1 week at PMD/GI office Follow up with: SIDDHARTHA HILL MD [Primary Care Provider] - 3-5 Days LUX MARTELL MD [Staff Physician] - 7 Days CHRISTINE MTZ MD [Staff Physician] - 7 Days Prescriptions: Folic Acid 1 tab PO QDAY #30 tab hydrALAZINE [Apresoline TAB] 10 mg PO Q8HR #90 tablet Pantoprazole [Protonix TAB] 40 mg PO BID #60 tablet Thiamine [Vitamin B-1] 100 mg PO QDAY #30 tablet
[2018-03-15 15:27] VITALS: BP 107/69
== END 2018-03-15 16:20 | disposition home or self-care (01) | DRG 280 ==
LOC: ED 15:33 → CC1 20:34 → IMCU 03-12 09:06
PROVIDERS: ADMIT Internal Medicine; ATTEND Internal Medicine
PROC: 0DJ08ZZ Inspection of Upper Intestinal Tract, Via Natural or Artificial Opening Endoscopic (ICD-10-PCS; principal; 2018-03-11)
PROC: 0DJ08ZZ Inspection of Upper Intestinal Tract, Via Natural or Artificial Opening Endoscopic (ICD-10-PCS; 2018-03-13)
PROC: 30233N1 Transfusion of Nonautologous Red Blood Cells into Peripheral Vein, Percutaneous Approach (ICD-10-PCS; 2018-03-13)
DX: I21.A1 Myocardial infarction type 2 (principal); K72.00 Acute and subacute hepatic failure without coma; N17.0 Acute kidney failure with tubular necrosis; K92.2 Gastrointestinal hemorrhage, unspecified; F10.239 Alcohol dependence with withdrawal, unspecified; D62 Acute posthemorrhagic anemia; J45.909 Unspecified asthma, uncomplicated; R74.0 Nonspecific elevation of levels of transaminase and lactic acid dehydrogenase [LDH]; I12.9 Hypertensive chronic kidney disease with stage 1 through stage 4 chronic kidney disease, or unspecified chronic kidney disease; N18.9 Chronic kidney disease, unspecified; K20.9 Esophagitis, unspecified; F17.200 Nicotine dependence, unspecified, uncomplicated; I95.9 Hypotension, unspecified; R09.02 Hypoxemia; Z71.41 Alcohol abuse counseling and surveillance of alcoholic; Z79.899 Other long term (current) drug therapy
CPT/HCPCS: 36415; 71045; 78452; 78582; 80048; 80053; 80061; 80074; 80307; 80320; 81001; 82271; 82962; 84484; 85007; 85014; 85018; 85025; 85610; 85730; 86850; 86900; 86901; 86920; 93005; 93010; 93017; 93306; 94640; 96361; 96365; 96366; 96375; A9502; A9540; A9558; C9113; G0480; J0171; J0696; J2060; J2250; J2354; J2370; J2704; J2785; J3411; J3475; J7030; J7040; P9016

== ENCOUNTER 2019-02-07 22:17 | Emergency (ER) | payer SELFPAY ==
--- NOTE | 2019-02-07 22:31 | Emergency Department Report ---
ED Fall HPI - General Stated Complaint: SYNCOPE/HIGH BP Time Seen by Provider: 02/07/19 22:30 - History of Present Illness Initial Comments: pt had a syncopal episode and fell down approx 3 stairs and hit L face. Pt admits to drinking this evening. EMS reports bg on scene 120. 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 Witnessed: yes, by family Place Fall Occurred: home Loss of Consciousness: yes Prolonged Down Time?: no Symptoms Prior to Fall: none Location: head, face Severity scale (0 -10): 5 - Related Data Previous Rx's Medication Instructions Recorded Last Taken Type HYDROcodone/APAP 7.5-325 [[place] 1 each PO Q6HR PRN #14 tablet 12/28/13 Unknown Rx 7.5-325 mg TAB] Folic Acid 1 tab PO QDAY #30 tab 03/15/18 Unknown Rx Pantoprazole [Protonix TAB] 40 mg PO BID #60 tablet 03/15/18 Unknown Rx Thiamine [Vitamin B-1] 100 mg PO QDAY #30 tablet 03/15/18 Unknown Rx hydrALAZINE [Apresoline TAB] 10 mg PO Q8HR #90 tablet 02/08/19 Unknown Rx hydroCHLOROthiazide [HCTZ] 25 mg PO QDAY 30 Days #30 tablet 02/08/19 Unknown Rx Allergies Allergy/AdvReac Type Severity Reaction Status Date / Time lisinopril Allergy Anaphylaxis Verified 03/11/18 19:30 ED Review of Systems ROS: Stated complaint: SYNCOPE/HIGH BP Other details as noted in HPI Comment: All other systems reviewed and negative Endocrine: denies: flushing Gastrointestinal: denies: nausea Genitourinary: denies: urgency Neurological: denies: headache Psychiatric: as per HPI. 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 on admission; unknown baseline.) Hx Seizures: No Hx Psychiatric Treatment: Yes (ETOH abuse) Hx Asthma: Yes - Surgical History Additional Surgical History: Herniorrhaphy - Social History Smoking Status: Never Smoker Substance Use Type: Alcohol (sixpack of beer daily) - Medications Home Medications: Home Medications Medication Instructions Recorded Confirmed Last Taken Type HYDROcodone/APAP 7.5-325 [[place] 1 each PO Q6HR PRN #14 tablet 12/28/13 Unknown Rx 7.5-325 mg TAB] Folic Acid 1 tab PO QDAY #30 tab 03/15/18 Unknown Rx Pantoprazole [Protonix TAB] 40 mg PO BID #60 tablet 03/15/18 Unknown Rx Thiamine [Vitamin B-1] 100 mg PO QDAY #30 tablet 03/15/18 Unknown Rx hydrALAZINE [Apresoline TAB] 10 mg PO Q8HR #90 tablet 02/08/19 Unknown Rx hydroCHLOROthiazide [HCTZ] 25 mg PO QDAY 30 Days #30 tablet 02/08/19 Unknown Rx ED Physical Exam - General Limitations: No Limitations General appearance: alert, in no apparent distress - Head Head exam: Present: atraumatic, normocephalic - Eye Eye exam: Present: normal appearance, PERRL, EOMI Pupils: Present: normal accommodation - ENT ENT exam: Present: normal exam - Neck Neck exam: Present: normal inspection - Respiratory Respiratory exam: Present: normal lung sounds bilaterally - Cardiovascular Cardiovascular Exam: Present: regular rate, normal rhythm - GI/Abdominal GI/Abdominal exam: Present: soft, normal bowel sounds - Extremities Exam Extremities exam: Present: normal inspection - Back Exam Back exam: Present: normal inspection - Neurological Exam Neurological exam: Present: alert, oriented X3, CN II-XII intact - Psychiatric Psychiatric exam: Present: normal affect, normal mood - Skin Skin exam: Present: warm ED Course Vital Signs 02/07/19 02/07/19 02/08/19 22:30 23:32 00:33 Temperature 97.2 F L Pulse Rate 62 68 75 Respiratory 20 20 22 Rate Blood Pressure 200/109 Blood Pressure [Left] Blood Pressure 199/112 203/110 [Right] O2 Sat by Pulse 99 96 97 Oximetry 02/08/19 02/08/19 02/08/19 01:33 03:09 06:31 Temperature Pulse Rate 75 88 61 Respiratory 24 22 Rate Blood Pressure Blood Pressure 196/111 164/100 [Left] Blood Pressure 198/102 196/111 [Right] O2 Sat by Pulse 97 20 L 96 Oximetry ED Medical Decision Making - Lab Data Result diagrams: 02/07/19 23:02 02/07/19 23:02 Critical care attestation.: If time is entered above; I have spent that time in minutes in the direct care of this critically ill patient, excluding procedure time. ED Disposition Clinical Impression: HTN (hypertension) Qualifiers: Hypertension type: essential hypertension Qualified Code(s): I10 - Essential (primary) hypertension Disposition: TO HOME OR SELFCARE Is pt being admited?: No Does the pt Need Aspirin: No Condition: Stable Instructions: Hypertension (ED) Prescriptions: hydrALAZINE [Apresoline TAB] 10 mg PO Q8HR #90 tablet hydroCHLOROthiazide [HCTZ] 25 mg PO QDAY 30 Days #30 tablet Referrals: BRIDGETT SR MD [Primary Care Provider] - 3-5 Days
[2019-02-07] MEDS ORDERED: CATAPRES PO ONE (22:33)
[2019-02-07 23:13] LABS: Basophils % (Auto) 0.8 % (0.0-1.8); Eosinophils % (Auto) 0.4 % (0.0-4.3); Hematocrit 40.7 % (35.5-45.6); Hemoglobin 13.9 gm/dl (11.8-15.2); Lymphocytes # (Auto) 0.7 K/mm3 (1.2-5.4); Lymphocytes % (Auto) 11.6 % (13.4-35.0); Mean Corpuscular HGB Conc 34 % (32-34); Mean Corpuscular Volume 95 fl (84-94); Monocytes # (Auto) 0.6 K/mm3 (0.0-0.8); Platelet Count 259 K/mm3 (140-440); Red Blood Count 4.29 M/mm3 (3.65-5.03); Red Cell Distribution Width 14.8 % (13.2-15.2)
[2019-02-07 23:34] LABS: Alanine Aminotransferase 124 units/L (7-56); Albumin 4.8 g/dL (3.9-5); BUN/Creatinine Ratio 5; Blood Urea Nitrogen 4 mg/dL (9-20); Calcium 9.7 mg/dL (8.4-10.2); Hemolysis Index 8
--- NOTE | 2019-02-07 23:37 | Cat Scan Report ---
CT head/brain wo con INDICATION / CLINICAL INFORMATION: head inj. TECHNIQUE: All CT scans at this location are performed using CT dose reduction for ALARA by means of automated e xposure control. COMPARISON: None available. FINDINGS: No intracranial hemorrhage or abnormal extra-axial fluid collection. The ventricular system and basilar cisterns are normal. No evidence of mass effect. Mild mucosal thickening is identified left maxillary and right posterior ethmoid sinuses. No skeletal abnormality. IMPRESSION: 1. No acute intracranial abnormality. 2. Mild paranasal sinus disease. Signer Name: Angel Arrington MD Signed: 02/07/2019 11:33 PM Workstation Name: [id number]
--- NOTE | 2019-02-07 23:39 | Cat Scan Report ---
CT facial bones wo con INDICATION / CLINICAL INFORMATION: MAIN: Syncope, left side facial pain. TECHNIQUE: All CT scans at this location are performed using CT dose reduction for ALARA by means of automated e xposure control. COMPARISON: None available. FINDINGS: No acute maxillofacial fractures are identified. Mucosal thickening is identified in the left maxillary and posterior right ethmoid sinuses. Orbital structures appear intact. No mandibular fractures. IMPRESSION: 1. No acute maxillofacial posttraumatic findings. 2 mild sinus mucosal thickening. Signer Name: Angel Arrington MD Signed: 02/07/2019 11:35 PM Workstation Name: [id number]
[2019-02-08 00:10] LABS: Bilirubin,Urine NEG (Negative); Blood,Urine MOD (Negative); Color,Urine Straw (Yellow); Protein,Urine >500 mg/dL (Negative); Urobilinogen,Urine < 2.0 mg/dL (<2.0); WBC,Urine < 1.0 /HPF (0.0-6.0)
[2019-02-08 00:19] LABS: Amphetamine Screen,Urine PRESUMPTIVE NEGATIVE; Benzodiazepines Screen,Urine PRESUMPTIVE NEGATIVE; Cannabinoid Screen,Urine PRESUMPTIVE NEGATIVE; Cocaine Screen,Urine PRESUMPTIVE NEGATIVE; Methadone Screen,Urine PRESUMPTIVE NEGATIVE; Opiate Screen,Urine PRESUMPTIVE NEGATIVE
[2019-02-08] MEDS ORDERED: PROCARDIA XL PO ONE (01:19)
[2019-02-08] MEDS ORDERED: TYLENOL ONE (01:58)
[2019-02-08] MEDS ORDERED: TYLENOL PO ONE (02:02)
[2019-02-08 06:31] VITALS: BP 164/100
== END 2019-02-08 06:31 | disposition home or self-care (01) ==
LOC: ED 22:17
DX: I10 Essential (primary) hypertension (principal); E11.9 Type 2 diabetes mellitus without complications; J45.909 Unspecified asthma, uncomplicated
CPT/HCPCS: 36415; 70450; 70486; 80053; 80307; 81001; 85025; 93005; 93010; 99284; G0480; 80320